=== PATIENT | female | born 1960 | race Two or more races ===

== ENCOUNTER → 2020-02-07 09:40 | Outpatient (BNVA) | payer OTHER, SELFPAY | PROVIDERS: PCP Internal Medicine; Visit Provider Hospitalist | DX: J45.51 Severe persistent asthma with (acute) exacerbation (principal) | CPT/HCPCS: 96372 ==

== ENCOUNTER → 2020-02-14 10:06 | Outpatient (BNVA) | payer OTHER, SELFPAY | PROVIDERS: PCP Internal Medicine; Referring Provider Internal Medicine; Visit Provider Hospitalist | DX: Z76.89 Persons encountering health services in other specified circumstances (principal) ==

== ENCOUNTER → 2020-03-08 13:59 | Outpatient (BNVA) | payer OTHER, SELFPAY | PROVIDERS: PCP Internal Medicine; Visit Provider Hospitalist | DX: J45.51 Severe persistent asthma with (acute) exacerbation (principal); G47.33 Obstructive sleep apnea (adult) (pediatric); Z99.89 Dependence on other enabling machines and devices ==

== ENCOUNTER → 2020-04-01 13:43 | Outpatient (BNVA) | payer OTHER, SELFPAY | PROVIDERS: PCP Internal Medicine; Visit Provider Hospitalist | DX: G47.33 Obstructive sleep apnea (adult) (pediatric) (principal); J45.909 Unspecified asthma, uncomplicated; Z99.89 Dependence on other enabling machines and devices | CPT/HCPCS: 90686 ==

== ENCOUNTER → 2020-04-29 13:33 | Outpatient (BNVA) | payer OTHER, SELFPAY | PROVIDERS: PCP Internal Medicine; Visit Provider Hospitalist | DX: Z76.89 Persons encountering health services in other specified circumstances (principal) ==

== ENCOUNTER → 2020-05-30 13:25 | Outpatient (BNVA) | payer OTHER, SELFPAY | PROVIDERS: PCP Internal Medicine; Visit Provider Hospitalist ==

== ENCOUNTER → 2020-06-10 13:45 | Outpatient (BNVA) | payer OTHER, SELFPAY | PROVIDERS: PCP Internal Medicine; Visit Provider Hospitalist ==

== ENCOUNTER → 2020-06-25 13:31 | Outpatient (BNVA) | payer OTHER, SELFPAY | PROVIDERS: PCP Internal Medicine; Visit Provider Hospitalist ==

== ENCOUNTER → 2020-07-15 13:19 | Outpatient (BNVA) | payer OTHER, SELFPAY | PROVIDERS: PCP Internal Medicine; Visit Provider Hospitalist | DX: J45.50 Severe persistent asthma, uncomplicated (principal) ==

== ENCOUNTER → 2020-08-12 14:16 | Outpatient (BNVA) | payer OTHER, SELFPAY | PROVIDERS: PCP Internal Medicine; Visit Provider Hospitalist | DX: J45.50 Severe persistent asthma, uncomplicated (principal); J45.51 Severe persistent asthma with (acute) exacerbation ==

== ENCOUNTER → 2020-09-23 14:04 | Outpatient (BNVA) | payer OTHER, SELFPAY | PROVIDERS: PCP Internal Medicine; Visit Provider Hospitalist | DX: J45.50 Severe persistent asthma, uncomplicated (principal); J45.51 Severe persistent asthma with (acute) exacerbation ==

== ENCOUNTER → 2020-11-08 14:16 | Outpatient (BNVA) | payer OTHER, SELFPAY | PROVIDERS: PCP Internal Medicine; Visit Provider Hospitalist | DX: J45.50 Severe persistent asthma, uncomplicated (principal); J45.51 Severe persistent asthma with (acute) exacerbation ==

== ENCOUNTER → 2020-12-05 13:43 | Outpatient (BNVA) | payer OTHER, SELFPAY | PROVIDERS: PCP Internal Medicine; Visit Provider Internal Medicine ==

== ENCOUNTER → 2020-12-10 13:49 | Outpatient (BNVA) | payer OTHER, SELFPAY | PROVIDERS: PCP Internal Medicine; Visit Provider Hospitalist | DX: J45.50 Severe persistent asthma, uncomplicated (principal); J45.51 Severe persistent asthma with (acute) exacerbation ==

== ENCOUNTER → 2021-01-09 13:51 | Outpatient (BNVA) | payer OTHER, SELFPAY | PROVIDERS: PCP Internal Medicine; Visit Provider Hospitalist | DX: J45.50 Severe persistent asthma, uncomplicated (principal); J45.51 Severe persistent asthma with (acute) exacerbation ==

== ENCOUNTER → 2021-01-30 14:28 | Outpatient (BNVA) | payer OTHER, SELFPAY | PROVIDERS: PCP Internal Medicine; Visit Provider Hospitalist | DX: J45.50 Severe persistent asthma, uncomplicated (principal); J45.51 Severe persistent asthma with (acute) exacerbation ==

== ENCOUNTER → 2021-03-20 15:07 | Outpatient (BNVA) | payer OTHER, SELFPAY | PROVIDERS: PCP Internal Medicine; Visit Provider Hospitalist | DX: J45.50 Severe persistent asthma, uncomplicated (principal); J45.51 Severe persistent asthma with (acute) exacerbation ==

== ENCOUNTER 2021-05-22 13:07 | Outpatient (REF) | payer OTHER, SELFPAY ==
--- NOTE | ~2021-05-22 | XR_ITS ---
EXAMINATION: XR CHEST CLINICAL INFORMATION: Asthma COMPARISON: None TECHNIQUE: 2 views of the chest were obtained. FINDINGS: Normal symmetric lung volumes. No parenchymal consolidation. No pleural effusion. No pneumothorax. Cardiomediastinal silhouette and pulmonary vascularity are within normal limits. Aorta is atherosclerotic. No acute osseous abnormalities. XR/XR chest 2V IMPRESSION: No acute findings.
[2021-05-22 14:47] LABS: Basophils Absolute Auto 0.1 X10*3/uL (0.0-0.2); Basophils Percent Auto 0.9 % (0-2); Eosinophils Absolute Auto 0.1 X10*3/uL (0.0-0.4); Eosinophils Percent Auto 1.8 % (0-4); Hematocrit 41.6 % (37.0-47.0); Hemoglobin 13.2 g/dl (12.0-16.0); Imm Gran Abs Auto 0.01 X10*3/uL (0.00-0.03); Imm Gran Pct Auto 0.1 % (0.0-0.4); Lymphocytes Absolute Auto 2.6 X10*3/uL (1.2-4.9); Lymphocytes Percent Auto 36.6 % (20-40); MANUAL DIFF FLAG SCAN; Mean Corpuscular HGB Conc 31.7 g/dl (31.0-35.0); Mean Corpuscular Hemoglobin 28.1 pg (27.0-33.0); Mean Corpuscular Volume 88.5 fL (80.0-98.0); Mean Platelet Volume 12.1 fL (9.4-12.3); Monocytes Absolute Auto 0.5 X10*3/uL (0.1-1.2); Monocytes Percent Auto 7.2 % (2-11); Neutrophils Absolute Auto 3.8 x10*3/uL (2.0-8.3); Neutrophils Percent Auto 53.4 % (45-73); PLT CLUMP 1; Red Cell Distribution Width 12.9 % (11.0-16.0); SCAN SMEAR FLAG 1
[2021-05-22 14:49] LABS: Platelet Count 138 X10*3/uL (160-400); White Blood Count 7.1 X10*3/uL (4.8-10.8)
[2021-05-22 15:03] LABS: SLIDE REVIEW VERIFIED
[2021-05-22 15:27] LABS: Erythrocyte Sedimentation Rate 11 MM/HR (0-20)
[2021-05-23 07:01] LABS: Immunoglobulin E 37 kU/L (<OR=114)
== END 2021-05-22 13:08 | disposition home or self-care (01) ==
LOC: HO.LAB 13:07
PROVIDERS: PCP Internal Medicine; Visit Provider Hospitalist
DX: J45.50 Severe persistent asthma, uncomplicated (principal); J45.51 Severe persistent asthma with (acute) exacerbation; J30.9 Allergic rhinitis, unspecified; G47.33 Obstructive sleep apnea (adult) (pediatric); Z99.89 Dependence on other enabling machines and devices
CPT/HCPCS: 36415; 71046; 82785; 85025; 85652

== ENCOUNTER → 2021-07-04 13:34 | Outpatient (BNVA) | payer OTHER, SELFPAY | PROVIDERS: PCP Internal Medicine; Visit Provider Hospitalist | DX: J45.50 Severe persistent asthma, uncomplicated (principal); J45.51 Severe persistent asthma with (acute) exacerbation; J30.9 Allergic rhinitis, unspecified; R91.8 Other nonspecific abnormal finding of lung field ==

== ENCOUNTER → 2021-08-11 14:05 | Outpatient (BNVA) | payer OTHER, SELFPAY | PROVIDERS: PCP Internal Medicine; Visit Provider Hospitalist | DX: J45.50 Severe persistent asthma, uncomplicated (principal); J45.51 Severe persistent asthma with (acute) exacerbation; J30.9 Allergic rhinitis, unspecified; R91.8 Other nonspecific abnormal finding of lung field ==

== ENCOUNTER 2021-10-16 14:39 | Outpatient (REF) | payer OTHER, SELFPAY ==
--- NOTE | ~2021-10-16 | XR_ITS ---
EXAMINATION: XR CHEST CLINICAL INFORMATION: Severe persistent asthma complicated COMPARISON: Chest radiograph from 05/22/2021 TECHNIQUE: 2 views of the chest were obtained. FINDINGS: No focal consolidation. No pneumothorax. Trachea is midline. Cardiomediastinal silhouette is not enlarged. Atherosclerotic calcifications along the aortic arch. No large pleural effusion. Osseous structures are intact. Soft tissues are unremarkable. XR/XR chest 2V IMPRESSION: No acute cardiopulmonary process.
== END 2021-10-16 14:40 | disposition home or self-care (01) ==
LOC: HO.XRAY 14:39
PROVIDERS: PCP Internal Medicine; Visit Provider Hospitalist
DX: J45.50 Severe persistent asthma, uncomplicated (principal)
CPT/HCPCS: 71046

== ENCOUNTER 2021-11-14 15:21 | Outpatient (REF) | payer OTHER, SELFPAY ==
[2021-11-14 16:04] LABS: COVID-19 Test Negative (Negative); IDNOW Serial# 16C4AD1C
== END 2021-11-14 15:22 | disposition home or self-care (01) ==
LOC: HO.LAB 15:21
PROVIDERS: Hospitalist; Visit Provider Internal Medicine
DX: Z20.822 Contact with and (suspected) exposure to COVID-19 (principal); J45.50 Severe persistent asthma, uncomplicated
CPT/HCPCS: 87635

== ENCOUNTER 2022-01-30 12:56 | Outpatient (REF) | payer OTHER, SELFPAY ==
--- NOTE | 2022-01-30 14:31 | PFT_ITS ---
FLOWS: FEV1 96% of predicted at 2.30 L. FVC 84% of predicted at 2.56 L. FEV1 to FVC ratio of 0.90. No bronchodilator response. LUNG VOLUMES: Total lung capacity 83% of predicted at 4.11 L. Residual volume 73% of predicted at 1.47 L. Slow vital capacity 90% of predicted at 2.64 L. Expiratory reserve volume 32% of predicted at 0.26 L. Diffusion capacity is normal. IMPRESSION: No obstructive or restrictive ventilatory defect. No bronchodilator response. Decreased expiratory reserve volume suggests extrathoracic restriction likely secondary to abdominal obesity. Dex Sewell MD AP/MODL / [id number]
== END 2022-01-30 12:57 | disposition home or self-care (01) ==
LOC: HO.RESP 12:56
PROVIDERS: PCP Internal Medicine; Visit Provider Hospitalist
DX: U07.1 COVID-19 (principal); R00.0 Tachycardia, unspecified
CPT/HCPCS: 94060; 94727; 94729

== ENCOUNTER → 2022-07-17 13:43 | Outpatient (BNVA) | payer OTHER, SELFPAY | PROVIDERS: PCP Internal Medicine; Visit Provider Hospitalist | DX: J45.51 Severe persistent asthma with (acute) exacerbation (principal); J30.9 Allergic rhinitis, unspecified; R91.8 Other nonspecific abnormal finding of lung field ==

== ENCOUNTER → 2022-10-13 11:13 | Outpatient (BNVA) | payer OTHER, SELFPAY | PROVIDERS: PCP Internal Medicine; Visit Provider Hospitalist ==

== ENCOUNTER 2023-04-02 15:35 | Outpatient (AMB) | payer OTHER, SELFPAY ==
--- NOTE | 2023-04-05 08:27 | A.OFFVIS_ITS ---
Intake Vital Signs 04/05/23 08:34 Height 5 ft 3 in Weight 210 lb 8.663 oz BMI 37.3 Intake Visit Reasons: Flu shot Allergies pneumococcal vaccine Allergy (Severe, Verified 04/05/23 08:33) Arm swollen Seasonal Allergies Allergy (Intermediate, Uncoded 04/05/23 08:33) Rash Medication List - Last Reconciled 04/05/23 by Vicki Mancia LPN albuterol sulfate 2.5 mg (3 mL) inhalation Q6H PRN 30 days albuterol sulfate 90 mcg/actuation (ProAir HFA) 2 puffs inhalation Q6H PRN 90 days amoxicillin-pot clavulanate 875-125 mg 1 tab PO BID 10 days azelastine 2 sprays intranasal BID benzonatate 200 mg PO BID PRN 30 days candesartan 16 mg PO BID cetirizine (Zyrtec) 10 mg PO DAILY 90 days cholecalciferol (vitamin D3) 50 mcg PO DAILY citalopram 0 mg PO clotrimazole 1% appl topical dicyclomine 10 mg PO QID PRN diphenhydramine HCl (Benadryl Allergy) 25 mg PO DAILY PRN 30 days dupilumab (Dupixent) 200 mg (1.14 mL) subcut Q2W 28 days escitalopram oxalate 10 mg PO DAILY ibuprofen 400 mg PO Q8H PRN inhalational spacing device (Aerochamber MV spacer) As directed ipratropium-albuterol 0.5 mg-3 mg(2.5 mg base)/3 mL 3 mL inhalation BID 30 days lorazepam 0.5 mg PO Q6H PRN montelukast 10 mg PO BEDTIME 90 days nebulizers As directed prednisone PO daily; Take 3 tabs x 3 days, then 2 tabs daily x 3 days, then 1 tab x 3 days to complete. 9 days roflumilast (Daliresp) 250 mcg PO DAILY 90 days rosuvastatin 10 mg PO DAILY simethicone 125 mg PO TID Trelegy Ellipta 200-62.5-25 mcg (xflkjrvtmct-kdephmqlf-qzobcsnj) 1 ea PO DAILY NS PFSH Medical History (Updated 07/17/22 @ 14:05 by Malick Dorsey MD) Rash Conversion disorder Hypercholesteremia Hypertension Chronic bronchitis Chronic allergic rhinitis Asthma Tachycardia MARIMAR on CPAP Asthma exacerbation attacks Family History Other Asthma Social History (Updated 01/09/21 @ 14:01 by DON Clark) Household Members: Spouse Household Members Other:: Thuan Patient Tobacco Use Status: Never used Tobacco Second Hand Smoke Exposure: No Physical Exam Vital Signs: BMI result Body Mass Index 37.3 Office Procedures Flu Questionnaire Does the patient have a severe egg allergy?: No Does the patient have severe life threatening allergies?: No Does the patient have a fever or illness today?: No Has the patient ever had Guillain-Alton Syndrome?: No Has the patient ever had any past reaction to a flu shot?: No Immunizations flu vacc [id number] 6mos up(PF) 60 mcg(15 mcgx4)/0.5 mL IM syringe Performing Provider: Malick Dorsey MD Performing Location: [facility] Administered by: Vicki Mancia LPN on 04/05/23 08:32 Dose Route Admin Location Dispensed Lot Number Expiration Date NDC Defect Repairer Glassware 0.5 mL IM Left Deltoid 0.5 mL [id number] 10/31/23 [id number] [place] VIS Given Date VIS Provided VIS Publication Date 04/05/23 Single Vaccine 20 Eligibility Eligibility Date Funding Source Not [facility] Eligible 04/05/23 Private Assessment & Plan Assessment & Plan (1) Asthma: Code(s): J45.909 - Unspecified asthma, uncomplicated Qualifiers: Asthma complication type: uncomplicated Asthma persistence: persistent Asthma severity: severe Qualified Code(s): J45.50 - Severe persistent asthma, uncomplicated Plan Flu Orders: Orders Influenza [id number] Immunization 04/02/23 J45.909 - Unspecified asthma, uncomplicated Coding Level of Care Code Established Pt Est Pt Level 1 (92923) Patient Type Established Diagnoses Severe persistent asthma without complication J45.50 Asthma complication type: uncomplicated Asthma persistence: persistent Asthma severity: severe Comment NURSE VISIT ONLY
[2023-04-05 08:34] VITALS: BMI 37.3
== END 2023-04-02 15:45 | disposition home or self-care (01) ==
LOC: HO.HPS 15:35
PROVIDERS: PCP Internal Medicine; Visit Provider Hospitalist
DX: J45.50 Severe persistent asthma, uncomplicated (principal); J45.909 Unspecified asthma, uncomplicated

== ENCOUNTER → 2023-04-02 15:35 | Outpatient (BNVA) | payer OTHER, SELFPAY | PROVIDERS: PCP Internal Medicine; Visit Provider Hospitalist | DX: J45.50 Severe persistent asthma, uncomplicated (principal); Z23 Encounter for immunization | CPT/HCPCS: 90471; 90686; 99211 ==

== ENCOUNTER 2023-04-16 11:07 | Outpatient (AMB) | payer OTHER, SELFPAY ==
--- NOTE | 2023-04-16 11:13 | MHC.OFFVIS ---
Intake Vital Signs 04/16/23 11:14 Height 5 ft 3 in Weight 215 lb BMI 38.1 BP 132/60 Blood Pressure Location Lt brachial Position Sitting Pulse 72 Pulse Source Pulse Oximeter Pulse Oximetry (%) 97 Oxygen Delivery Method Room Air Intake Visit Reasons: COPD follow-up Production Control Expediter Required: No Allergies pneumococcal vaccine Allergy (Severe, Verified 04/16/23 11:17) Arm swollen Seasonal Allergies Allergy (Intermediate, Uncoded 04/16/23 11:17) Rash HPI HPI Comments History of Present Illness Details The patient is a 62-year-old woman with a known history of lifelong asthma in addition to obstructive sleep apnea. Apparently she has had episodes of her asthma getting worse. However, back in the winter in the fall of 2017 her asthma got much worse. She required multiple courses of prednisone on a monthly basis. She was then evaluated by Pulmonary and she was placed on a respiratory inhaler that provide her with some improvement of her symptoms. However, then she started having issues with her blood pressure. She has been labile higher low. She was evaluated also in the ER because of the blood pressure. She did have a CT scan of the chest done back in 2019 the ruled out pulmonary emboli and per report did not have any parenchymal disease. 01/12/2022 the patient is here for a pulmonary follow-up visit. Although overall she continues to do fairly well. She has had some episodes which she develops some chest tightness in addition to palpitations. The episodes are self-limiting. Typically she just stress to rest and she does not have to use any bronchodilator therapy. during the episodes she has noticed that her heart rate increases and she also documented that her oxygen may drop to the mid 80s. Today her vital signs are stable. She has had a full cardiac workup although it appears that she may have some episodes tachyarrhythmias or SVT. It appears that her symptoms restarted after having COVID. 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 The patient also has been time to go back to exercise. However, with these episodes she has become fights in about potential pulmonary worsening. Therefore, will have her undergo pulmonary function studies and see about getting her to pulmonary rehabilitation which she can start exercising under some surveillance in order to improve her respiratory capacity indoors. In the meantime she continues use her CPAP. CPAP therapy continues to be affecting beneficial. She does try to use it for more than 4 hours. She was little reluctant after having COVID. but she is using it more regularly. 07/17/2022 the patient is here for a pulmonary follow-up visit. The patient is doing well. She is responding well to the current respiratory regimen. Recently has an asthma flare requiring Prednisone. Now back to her baseline. She is tolerating the Trelegy very well. She still has episodes of shortness of breath and chest tightness. Ltad-nj-bmyvqqga severity. She does need to use her rescue inhaler those times. She is still responding to the Dupixent well. Although, she has developed a rash. She will try benadryl pre injections. If the rash worsens, then we will have to find and alternative. She is using her CPAP. The CPAP therapy continues to be affecting beneficial. She does try to use it more than 4 hours a night. 10/13/2022 the patient is here for a pulmonary follow-up visit. The patient overall has been doing well from a respiratory status. The regimen has been working well for her. She has not been on any prednisone. The patient is tolerating her medicines. Unfortunately, she is developing a worsening rash. Initially she was getting pruritus when using the Dupixent and had been taking Benadryl before the injection which appeared to be working. Now that we getting more sending days on and she is noticing more skin blemish. Some of the areas appeared to be travertine installer in color and she is worried about vitiligo that may be induced by Dupixent. The area still not look like middle I go to me but they definitely look a little bit travertine installer in pigmentation in a may be something that is potentially progressive. Therefore we did discuss a holding her injection for now and starting her on a lower dose. She is agreeable to this. The regimen has been very effective for her because she had a lot of exacerbations and quality of life was very poor. So, the ADL stopping the medication may resulting worsening respiratory symptoms therefore rather try to decrease the dose 1st to see if this is effective for her to find the lowest most effective dose with the last risk of any adverse effects. If she still has issues then will have to stop it altogether consider other potential interventions. In the meantime the patient continues her CPAP. CPAP therapy continues to be affecting beneficial. She does use it for more than 4 hours a night. Sometimes she has not increased productive cough in the morning. I did advise her to start her nasal rinsing to minimize nasal secretions. 04/16/2023 the patient is here for a pulmonary follow-up visit. The patient continues to do well. She had her Dupixent decrease to 200 mg and she is tolerating it well. She has noticed a slight rash but very minimal. No evidence of any better like go which is reassuring. She does complaint of headaches and abdominal discomfort. She is working on trying to figure out if this is the medication adverse effect. The I did recommend that if she continues to have discomfort she can consider decreasing the Daliresp it to every other day of 3 times a week to see if this improves her symptoms. Her current medical regimen as provide her with good stabilization of her asthma and respiratory symptoms therefore I would be careful to change any of her regimen. As far as her sleep she is using CPAP. CPAP therapy continues to be affecting beneficial. She does try to use it every night for more than 4 hours a night. Will continue to monitor her closely. Patient has any worsening adverse effects from the medications she will call me otherwise will follow-up in 6 months.. [facility] Medical History (Updated 04/19/23 @ 21:54 by Malick Dorsey MD) Rash Conversion disorder Hypercholesteremia Hypertension Chronic bronchitis Chronic allergic rhinitis Asthma Tachycardia MARIMAR on CPAP Asthma exacerbation attacks Family History Other Asthma Social History (Updated 01/09/21 @ 14:01 by Melia Vu [facility]) Household Members: Spouse Household Members Other:: Thuan Patient Tobacco Use Status: Never used Tobacco Second Hand Smoke Exposure: No Review of Systems Const Denies daytime sleepiness, Denies difficulty sleeping, Reports headache(s), Denies night sweats and Reports weight gain ENT Denies change in voice, Reports headache(s), Denies lip swelling, Denies mouth pain, Reports nasal congestion, Reports nasal discharge and Denies tongue swelling Card Denies chest pain, Denies palpitations, Denies dyspnea, Reports dyspnea on exertion and Reports paroxysmal nocturnal dyspnea Resp Denies chest congestion, Reports cough, Denies dyspnea, Reports dyspnea on exertion and Reports wheezing GI Denies abdominal pain Musc Reports muscle weakness Skin/Breast Reports change in pigmentation and Reports rash Neuro Denies Neuro-related abnormal movements and Reports headache(s) Psych Denies anxiety Endo Denies palpitations Car/Lymph Denies easy bleeding and Denies lymphadenopathy Aller/Immun Denies lip swelling, Denies tongue swelling and Reports wheezing Physical Exam Vital Signs: Last Vital Signs Pulse 72 04/16/23 11:14 BP 132/60 04/16/23 11:14 Pulse Ox 97 04/16/23 11:14 Oxygen Delivery Method Room Air 04/16/23 11:14 BMI result Body Mass Index 38.1 Const General: alert Neck Neck: Yes normal visual inspection, Yes full ROM and Yes no lymphadenopathy Chest Chest palpation & inspection: normal inspection of the chest Resp Auscultation: clear to auscultation bilaterally and no wheezes Cardio Rate: regular rate Rhythm: regular rhythm Heart sounds: S1 normal heart sound present and S2 normal heart sound present GI Palpation (GI): Soft to palpation and nontender Auscultation: normal bowel sounds Skin General skin exam: other (pale hypo pigmented areas on the arms and face) Assessment & Plan Assessment & Plan (1) Asthma: Code(s): J45.909 - Unspecified asthma, uncomplicated Qualifiers: Asthma complication type: uncomplicated Asthma persistence: persistent Asthma severity: severe Qualified Code(s): J45.50 - Severe persistent asthma, uncomplicated (2) Chronic bronchitis: Code(s): J42 - Unspecified chronic bronchitis Qualifiers: Chronic bronchitis type: mixed simple and mucopurulent Qualified Code(s): J41.8 - Mixed simple and mucopurulent chronic bronchitis (3) Chronic allergic rhinitis: Code(s): J30.9 - Allergic rhinitis, unspecified (4) MARIMAR on CPAP: Code(s): G47.33 - Obstructive sleep apnea (adult) (pediatric); Z99.89 - Dependence on other enabling machines and devices (5) Rash: Comment: better Code(s): R21 - Rash and other nonspecific skin eruption Plan continue Dupixent 200mg SC Q2 weeks. Monitor for any worsening rash Will take Benadryl pre Dupixent continue Trelegy Xopenex as needed continue Daliresp 250 to daily, consider decreasing if worsening abdominal pain/headaches Continue Felicia, astelin nasal spray tessalon pearls as needed for cough continue CPAP therapy, nasal mask and add chin strap. F/U 3-4 months Coding Level of Care Code Est Pt Level 4 (09629) Diagnoses Severe persistent asthma without complication J45.50 Asthma complication type: uncomplicated Asthma persistence: persistent Asthma severity: severe Mixed simple and mucopurulent chronic bronchitis J41.8 Chronic bronchitis type: mixed simple and mucopurulent Chronic allergic rhinitis J30.9 MARIMAR on CPAP G47.33; Z99.89 Rash R21 Time Spent (min) 18
[2023-04-16 11:14] VITALS: BP 132/60; PULSE 72; O2SAT 97; BMI 38.1
== END 2023-04-16 11:30 | disposition home or self-care (01) ==
PROVIDERS: PCP Internal Medicine; Visit Provider Hospitalist
DX: J45.50 Severe persistent asthma, uncomplicated (principal); J41.8 Mixed simple and mucopurulent chronic bronchitis; J30.9 Allergic rhinitis, unspecified; G47.33 Obstructive sleep apnea (adult) (pediatric); Z99.89 Dependence on other enabling machines and devices; R21 Rash and other nonspecific skin eruption
CPT/HCPCS: 99214

== ENCOUNTER → 2023-04-16 11:07 | Outpatient (BNVA) | payer OTHER, SELFPAY | PROVIDERS: PCP Internal Medicine; Visit Provider Hospitalist ==

== ENCOUNTER 2023-10-11 11:21 | Outpatient (AMB) | payer OTHER, SELFPAY ==
[2023-10-11 11:26] VITALS: PULSE 81; O2SAT 96; BMI 37.9
--- NOTE | 2023-10-11 11:26 | MHC.OFFVIS ---
Vital Signs 10/11/23 11:26 Height 5 ft 3 in Weight 214 lb BMI 37.9 Pulse 81 Pulse Source Pulse Oximeter Pulse Oximetry (%) 96 Oxygen Delivery Method Room Air Intake Visit Reasons: COPD follow-up Administrative Assistant Coordinator Required: No Allergies pneumococcal vaccine Allergy (Severe, Verified 10/11/23 11:29) Arm swollen Seasonal Allergies Allergy (Intermediate, Uncoded 10/11/23 11:29) Rash HPI Comments Details: The patient is a 63-year-old woman with a known history of lifelong asthma in addition to obstructive sleep apnea. Apparently she has had episodes of her asthma getting worse. However, back in the winter in the fall of 2017 her asthma got much worse. She required multiple courses of prednisone on a monthly basis. She was then evaluated by Pulmonary and she was placed on a respiratory inhaler that provide her with some improvement of her symptoms. However, then she started having issues with her blood pressure. She has been labile higher low. She was evaluated also in the ER because of the blood pressure. She did have a CT scan of the chest done back in 2019 the ruled out pulmonary emboli and per report did not have any parenchymal disease. 01/12/2022 the patient is here for a pulmonary follow-up visit. Although overall she continues to do fairly well. She has had some episodes which she develops some chest tightness in addition to palpitations. The episodes are self-limiting. Typically she just stress to rest and she does not have to use any bronchodilator therapy. during the episodes she has noticed that her heart rate increases and she also documented that her oxygen may drop to the mid 80s. Today her vital signs are stable. She has had a full cardiac workup although it appears that she may have some episodes tachyarrhythmias or SVT. It appears that her symptoms restarted after having COVID. 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 The patient also has been time to go back to exercise. However, with these episodes she has become fights in about potential pulmonary worsening. Therefore, will have her undergo pulmonary function studies and see about getting her to pulmonary rehabilitation which she can start exercising under some surveillance in order to improve her respiratory capacity indoors. In the meantime she continues use her CPAP. CPAP therapy continues to be affecting beneficial. She does try to use it for more than 4 hours. She was little reluctant after having COVID. but she is using it more regularly. 07/17/2022 the patient is here for a pulmonary follow-up visit. The patient is doing well. She is responding well to the current respiratory regimen. Recently has an asthma flare requiring Prednisone. Now back to her baseline. She is tolerating the Trelegy very well. She still has episodes of shortness of breath and chest tightness. [id number] severity. She does need to use her rescue inhaler those times. She is still responding to the Dupixent well. Although, she has developed a rash. She will try benadryl pre injections. If the rash worsens, then we will have to find and alternative. She is using her CPAP. The CPAP therapy continues to be affecting beneficial. She does try to use it more than 4 hours a night. 10/13/2022 the patient is here for a pulmonary follow-up visit. The patient overall has been doing well from a respiratory status. The regimen has been working well for her. She has not been on any prednisone. The patient is tolerating her medicines. Unfortunately, she is developing a worsening rash. Initially she was getting pruritus when using the Dupixent and had been taking Benadryl before the injection which appeared to be working. Now that we getting more sending days on and she is noticing more skin blemish. Some of the areas appeared to be outboard motor mechanic in color and she is worried about vitiligo that may be induced by Dupixent. The area still not look like middle I go to me but they definitely look a little bit outboard motor mechanic in pigmentation in a may be something that is potentially progressive. Therefore we did discuss a holding her injection for now and starting her on a lower dose. She is agreeable to this. The regimen has been very effective for her because she had a lot of exacerbations and quality of life was very poor. So, the ADL stopping the medication may resulting worsening respiratory symptoms therefore rather try to decrease the dose 1st to see if this is effective for her to find the lowest most effective dose with the last risk of any adverse effects. If she still has issues then will have to stop it altogether consider other potential interventions. In the meantime the patient continues her CPAP. CPAP therapy continues to be affecting beneficial. She does use it for more than 4 hours a night. Sometimes she has not increased productive cough in the morning. I did advise her to start her nasal rinsing to minimize nasal secretions. 04/16/2023 the patient is here for a pulmonary follow-up visit. The patient continues to do well. She had her Dupixent decrease to 200 mg and she is tolerating it well. She has noticed a slight rash but very minimal. No evidence of any better like go which is reassuring. She does complaint of headaches and abdominal discomfort. She is working on trying to figure out if this is the medication adverse effect. The I did recommend that if she continues to have discomfort she can consider decreasing the Daliresp it to every other day of 3 times a week to see if this improves her symptoms. Her current medical regimen as provide her with good stabilization of her asthma and respiratory symptoms therefore I would be careful to change any of her regimen. As far as her sleep she is using CPAP. CPAP therapy continues to be affecting beneficial. She does try to use it every night for more than 4 hours a night. Will continue to monitor her closely. Patient has any worsening adverse effects from the medications she will call me otherwise will follow-up in 6 months.. 10/11/2023 the patient is here for a pulmonary follow-up visit. Overall she is doing okay. She is getting worked up for her GI discomfort. She is going to undergo a colonoscopy. The patient should be able to tolerate anesthesia without any difficulties. She also be in the hospital that she needs respiratory care they are present. That the patient seems to be working for her for her asthma. She has not had any asthma flare-ups while on the Dupixent which is reassuring. Although, she feels like she is still developing rashes from a. Back in August she had a rash in the face was not sure if it was Dupixent so she held it for some time. Then the rash happened again so then she suspect that it was not done Dupixent. Then she restarted Dupixent beginning of October. She has not had any adverse effects. Although she has noticed some skin changes in her arms. She rather have this can changes in her arms then have active asthma though. We did talk about although alternatives. For now though she will continue with the Dupixent. She will continue with respiratory therapy. She will continue to use her CPAP. CPAP therapy continues to be affecting beneficial she does use it every night for more than 4 hours. The patient returned 4 months or sooner if she develops any worsening issues with the Dupixent injection. She is going to retreat with Benadryl. She can take up to 50 mg of Benadryl prior to the Dupixent shot. [facility] Medical History (Updated 04/19/23 @ 21:54 by Malick Dorsey MD) Rash Conversion disorder Hypercholesteremia Hypertension Chronic bronchitis Chronic allergic rhinitis Asthma Tachycardia MARIMAR on CPAP Asthma exacerbation attacks Family History Other Asthma Social History (Updated 01/09/21 @ 14:01 by Melia Vu [facility]) Household Members: Spouse Household Members Other:: Thuan Patient Tobacco Use Status: Never used Tobacco Second Hand Smoke Exposure: No Review of Systems Const Denies daytime sleepiness, Denies difficulty sleeping, Reports headache(s), Denies night sweats and Reports weight gain ENT Denies change in voice, Reports headache(s), Denies lip swelling, Denies mouth pain, Reports nasal congestion, Reports nasal discharge and Denies tongue swelling Card Denies chest pain, Denies palpitations, Denies dyspnea, Reports dyspnea on exertion and Reports paroxysmal nocturnal dyspnea Resp Denies chest congestion, Reports cough, Denies dyspnea, Reports dyspnea on exertion and Reports wheezing GI Reports abdominal pain Musc Reports muscle weakness Skin/Breast Reports change in pigmentation and Reports rash Neuro Denies Neuro-related abnormal movements and Reports headache(s) Psych Denies anxiety Endo Denies palpitations Car/Lymph Denies easy bleeding and Denies lymphadenopathy Aller/Immun Denies lip swelling, Denies tongue swelling and Reports wheezing Physical Exam Vital Signs: Last Vital Signs Pulse 81 10/11/23 11:26 Pulse Ox 96 10/11/23 11:26 Oxygen Delivery Method Room Air 10/11/23 11:26 BMI result Body Mass Index 37.9 Const General: alert Neck Neck: Yes normal visual inspection, Yes full ROM and Yes no lymphadenopathy Chest Chest palpation & inspection: normal inspection of the chest Resp Auscultation: clear to auscultation bilaterally and no wheezes Cardio Rate: regular rate Rhythm: regular rhythm Heart sounds: S1 normal heart sound present and S2 normal heart sound present GI Palpation (GI): Soft to palpation and nontender Auscultation: normal bowel sounds Skin General skin exam: other (pale hypo pigmented areas on the arms and face) Assessment & Plan Assessment & Plan (1) Asthma: Code(s): J45.909 - Unspecified asthma, uncomplicated Category: Medical Qualifiers: Asthma complication type: uncomplicated Asthma persistence: persistent Asthma severity: severe Qualified Code(s): J45.50 - Severe persistent asthma, uncomplicated (2) Chronic bronchitis: Code(s): J42 - Unspecified chronic bronchitis Category: Medical Qualifiers: Chronic bronchitis type: mixed simple and mucopurulent Qualified Code(s): J41.8 - Mixed simple and mucopurulent chronic bronchitis (3) Chronic allergic rhinitis: Code(s): J30.9 - Allergic rhinitis, unspecified Category: Medical (4) MARIMAR on CPAP: Code(s): G47.33 - Obstructive sleep apnea (adult) (pediatric); Z99.89 - Dependence on other enabling machines and devices Category: Medical (5) Rash: Comment: better Code(s): R21 - Rash and other nonspecific skin eruption Category: Medical Plan continue Dupixent 200mg SC Q2 weeks. Monitor for any worsening rash, will make every 3 weeks to assess rash for now Will take Benadry 50mg, pre Dupixent continue Trelegy Xopenex as needed continue Daliresp 250 to daily Continue zyrtec, astelin nasal spray tessalon pearls as needed for cough continue CPAP therapy, nasal mask and add chin strap. F/U 4-6 months Medications: New diphenhydramine HCl (Benadryl Allergy) 25 mg PO BEDTIME PRN 20 tabs 11RF allergic reaction 30 days Coding Level of Care Code Est Pt Level 4 (86028) Diagnoses Severe persistent asthma without complication J45.50 Asthma complication type: uncomplicated Asthma persistence: persistent Asthma severity: severe Mixed simple and mucopurulent chronic bronchitis J41.8 Chronic bronchitis type: mixed simple and mucopurulent Chronic allergic rhinitis J30.9 MARIMAR on CPAP G47.33; Z99.89 Rash R21 Time Spent (min) 17
== END 2023-10-11 11:53 | disposition home or self-care (01) ==
PROVIDERS: PCP Internal Medicine; Visit Provider Hospitalist
DX: J45.50 Severe persistent asthma, uncomplicated (principal); J41.8 Mixed simple and mucopurulent chronic bronchitis; J30.9 Allergic rhinitis, unspecified; G47.33 Obstructive sleep apnea (adult) (pediatric); Z99.89 Dependence on other enabling machines and devices; R21 Rash and other nonspecific skin eruption
CPT/HCPCS: 99214

== ENCOUNTER → 2023-10-11 11:21 | Outpatient (BNVA) | payer OTHER, SELFPAY | PROVIDERS: PCP Internal Medicine; Visit Provider Hospitalist ==

== ENCOUNTER 2023-11-30 10:58 | Outpatient (AMB) | payer OTHER, SELFPAY ==
--- NOTE | 2023-11-30 11:10 | MHC.OFFVIS ---
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 Apparently she has had episodes of her asthma getting worse. However, back in the winter in the fall of 2017 her asthma got much worse. She required multiple courses of prednisone on a monthly basis. She was then evaluated by Pulmonary and she was placed on a respiratory inhaler that provide her with some improvement of her symptoms. However, then she started having issues with her blood pressure. She has been labile higher low. She was evaluated also in the ER because of the blood pressure. She did have a CT scan of the chest done back in 2019 the ruled out pulmonary emboli and per report did not have any parenchymal disease. 01/12/2022 the patient is here for a pulmonary follow-up visit. Although overall she continues to do fairly well. She has had some episodes which she develops some chest tightness in addition to palpitations. The episodes are self-limiting. Typically she just stress to rest and she does not have to use any bronchodilator therapy. during the episodes she has noticed that her heart rate increases and she also documented that her oxygen may drop to the mid 80s. Today her vital signs are stable. She has had a full cardiac workup although it appears that she may have some episodes tachyarrhythmias or SVT. It appears that her symptoms restarted after having COVID. 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 The patient also has been time to go back to exercise. However, with these episodes she has become fights in about potential pulmonary worsening. Therefore, will have her undergo pulmonary function studies and see about getting her to pulmonary rehabilitation which she can start exercising under some surveillance in order to improve her respiratory capacity indoors. In the meantime she continues use her CPAP. CPAP therapy continues to be affecting beneficial. She does try to use it for more than 4 hours. She was little reluctant after having COVID. but she is using it more regularly. 07/17/2022 the patient is here for a pulmonary follow-up visit. The patient is doing well. She is responding well to the current respiratory regimen. Recently has an asthma flare requiring Prednisone. Now back to her baseline. She is tolerating the Trelegy very well. She still has episodes of shortness of breath and chest tightness. [id number] severity. She does need to use her rescue inhaler those times. She is still responding to the Dupixent well. Although, she has developed a rash. She will try benadryl pre injections. If the rash worsens, then we will have to find and alternative. She is using her CPAP. The CPAP therapy continues to be affecting beneficial. She does try to use it more than 4 hours a night. 10/13/2022 the patient is here for a pulmonary follow-up visit. The patient overall has been doing well from a respiratory status. The regimen has been working well for her. She has not been on any prednisone. The patient is tolerating her medicines. Unfortunately, she is developing a worsening rash. Initially she was getting pruritus when using the Dupixent and had been taking Benadryl before the injection which appeared to be working. Now that we getting more sending days on and she is noticing more skin blemish. Some of the areas appeared to be continuous pillowcase cutter in color and she is worried about vitiligo that may be induced by Dupixent. The area still not look like middle I go to me but they definitely look a little bit continuous pillowcase cutter in pigmentation in a may be something that is potentially progressive. Therefore we did discuss a holding her injection for now and starting her on a lower dose. She is agreeable to this. The regimen has been very effective for her because she had a lot of exacerbations and quality of life was very poor. So, the ADL stopping the medication may resulting worsening respiratory symptoms therefore rather try to decrease the dose 1st to see if this is effective for her to find the lowest most effective dose with the last risk of any adverse effects. If she still has issues then will have to stop it altogether consider other potential interventions. In the meantime the patient continues her CPAP. CPAP therapy continues to be affecting beneficial. She does use it for more than 4 hours a night. Sometimes she has not increased productive cough in the morning. I did advise her to start her nasal rinsing to minimize nasal secretions. 04/16/2023 the patient is here for a pulmonary follow-up visit. The patient continues to do well. She had her Dupixent decrease to 200 mg and she is tolerating it well. She has noticed a slight rash but very minimal. No evidence of any better like go which is reassuring. She does complaint of headaches and abdominal discomfort. She is working on trying to figure out if this is the medication adverse effect. The I did recommend that if she continues to have discomfort she can consider decreasing the Daliresp it to every other day of 3 times a week to see if this improves her symptoms. Her current medical regimen as provide her with good stabilization of her asthma and respiratory symptoms therefore I would be careful to change any of her regimen. As far as her sleep she is using CPAP. CPAP therapy continues to be affecting beneficial. She does try to use it every night for more than 4 hours a night. Will continue to monitor her closely. Patient has any worsening adverse effects from the medications she will call me otherwise will follow-up in 6 months.. 10/11/2023 the patient is here for a pulmonary follow-up visit. Overall she is doing okay. She is getting worked up for her GI discomfort. She is going to undergo a colonoscopy. The patient should be able to tolerate anesthesia without any difficulties. She also be in the hospital that she needs respiratory care they are present. That the patient seems to be working for her for her asthma. She has not had any asthma flare-ups while on the Dupixent which is reassuring. Although, she feels like she is still developing rashes from a. Back in August she had a rash in the face was not sure if it was Dupixent so she held it for some time. Then the rash happened again so then she suspect that it was not done Dupixent. Then she restarted Dupixent beginning of October. She has not had any adverse effects. Although she has noticed some skin changes in her arms. She rather have this can changes in her arms then have active asthma though. We did talk about although alternatives. For now though she will continue with the Dupixent. She will continue with respiratory therapy. She will continue to use her CPAP. CPAP therapy continues to be affecting beneficial she does use it every night for more than 4 hours. The patient returned 4 months or sooner if she develops any worsening issues with the Dupixent injection. She is going to retreat with Benadryl. She can take up to 50 mg of Benadryl prior to the Dupixent shot. 10/31/2023 the patient is here for a sick visit. Apparently she had a respiratory virus about 3 weeks ago and after that she has not been the same. She started developing some congestion. She did call the office and did we did prescribe her Augmentin and also prednisone. She is continue her respiratory therapy. Although she still does not feel well. She does complains of some epigastric discomfort. The symptoms of soreness in the epigastric area mid to lower area are consistent. Sometimes they worsened but for the most part they are always there. The patient does complain of some heartburn as well. Will go ahead and stop the Augmentin altogether since she is almost taking 10 days and she also take the prednisone. It may indeed be a component of esophagitis based on her medications. She is continued on the Dupixent. We have switched her over to every 3 weeks because of the rash issue but now that the rash is better and her symptoms are worse will go ahead and change her back to the every 2 weeks. She will get an x-ray today to make sure that everything is okay from the chest area and also an EKG. She is going to be started on a PPI she is going to monitor her epigastric discomfort. If the patient continues to have discomfort she should call and cancel her colonoscopy. Otherwise if the patient feels better she should move forward with. [facility] Medical History (Updated 11/30/23 @ 22:03 by Malick Dorsey MD) Pre-op chest exam Chest pain Rash Conversion disorder Hypercholesteremia Hypertension Chronic bronchitis Chronic allergic rhinitis Asthma Tachycardia MARIMAR on CPAP Asthma exacerbation attacks Family History Other Asthma Social History (Updated 01/09/21 @ 14:01 by DON Clark) Household Members: Spouse Household Members Other:: Thuan Patient Tobacco Use Status: Never used Tobacco Second Hand Smoke Exposure: No Review of Systems Const Denies daytime sleepiness, Denies difficulty sleeping, Reports headache(s), Denies night sweats and Reports weight gain ENT Denies change in voice, Reports headache(s), Denies lip swelling, Denies mouth pain, Reports nasal congestion, Reports nasal discharge and Denies tongue swelling Card Denies chest pain, Denies palpitations, Denies dyspnea, Reports dyspnea on exertion and Reports paroxysmal nocturnal dyspnea Resp Denies chest congestion, Reports cough, Denies dyspnea, Reports dyspnea on exertion and Reports wheezing GI Reports abdominal pain Musc Reports muscle weakness Skin/Breast Reports change in pigmentation and Denies rash Neuro Denies Neuro-related abnormal movements and Reports headache(s) Psych Denies anxiety Endo Denies palpitations Car/Lymph Denies easy bleeding and Denies lymphadenopathy Aller/Immun Denies lip swelling, Denies tongue swelling and Reports wheezing Physical Exam Vital Signs: Last Vital Signs Pulse 80 11/30/23 11:11 BP 128/70 11/30/23 11:11 Pulse Ox 98 11/30/23 11:11 Oxygen Delivery Method Room Air 11/30/23 11:11 BMI result Body Mass Index 38.1 Const General: alert Neck Neck: Yes normal visual inspection, Yes full ROM and Yes no lymphadenopathy Chest Chest palpation & inspection: normal inspection of the chest Resp Auscultation: clear to auscultation bilaterally and no wheezes Cardio Rate: regular rate Rhythm: regular rhythm Heart sounds: S1 normal heart sound present and S2 normal heart sound present GI Palpation (GI): Soft to palpation and nontender Auscultation: normal bowel sounds Skin General skin exam: other (pale hypo pigmented areas on the arms and face) Assessment & Plan Assessment & Plan (1) Asthma: Code(s): J45.909 - Unspecified asthma, uncomplicated Category: Medical Qualifiers: Asthma complication type: uncomplicated Asthma persistence: persistent Asthma severity: severe Qualified Code(s): J45.50 - Severe persistent asthma, uncomplicated (2) Chronic bronchitis: Code(s): J42 - Unspecified chronic bronchitis Category: Medical Qualifiers: Chronic bronchitis type: mixed simple and mucopurulent Qualified Code(s): J41.8 - Mixed simple and mucopurulent chronic bronchitis (3) Chronic allergic rhinitis: Code(s): J30.9 - Allergic rhinitis, unspecified Category: Medical (4) MARIMAR on CPAP: Code(s): G47.33 - Obstructive sleep apnea (adult) (pediatric); Z99.89 - Dependence on other enabling machines and devices Category: Medical (5) Rash: Comment: better Code(s): R21 - Rash and other nonspecific skin eruption Category: Medical (6) Chest pain: Code(s): R07.9 - Chest pain, unspecified Category: Medical Qualifiers: Chest pain type: unspecified Qualified Code(s): R07.9 - Chest pain, unspecified (7) Pre-op chest exam: Code(s): Z01.811 - Encounter for preprocedural respiratory examination Category: Medical Plan completed abx and prednisone start PPI CXR and EKG If her chest discort subsides, then she may proceed with her colonoscopy. However, if she continues with chest discomfort, she will need to postpone any elective procedures. She will take the PPI and let us know by early next week continue Dupixent 200mg SC Q2 weeks. Return to 2 weeks Will take Benadry 50mg, pre Dupixent continue Trelegy Xopenex as needed continue Daliresp 250 to daily Continue zyrtec, astelin nasal spray tessalon pearls as needed for cough continue CPAP therapy, nasal mask and add chin strap. F/U 4-6 months Orders: Orders XR chest 2V Today R07.9 - Chest pain, unspecified ECG 12 lead EKG Today J44.9 - Chronic obstructive pulmonary disease, unspecified, R07.9 - Chest pain, unspecified Medications: New omeprazole 40 mg PO BID 60 caps 0RF 30 days Coding Level of Care Code Est Pt Level 4 (22877) Complex EM visit Add On G2211 Diagnoses Severe persistent asthma without complication J45.50 Asthma complication type: uncomplicated Asthma persistence: persistent Asthma severity: severe Mixed simple and mucopurulent chronic bronchitis J41.8 Chronic bronchitis type: mixed simple and mucopurulent Chronic allergic rhinitis J30.9 MARIMAR on CPAP G47.33; Z99.89 Rash R21 Chest pain, unspecified type R07.9 Chest pain type: unspecified Pre-op chest exam Z01.811 Time Spent (min) 20
[2023-11-30 11:11] VITALS: BP 128/70; PULSE 80; O2SAT 98; BMI 38.1
== END 2023-11-30 11:47 | disposition home or self-care (01) ==
PROVIDERS: PCP Internal Medicine; Visit Provider Hospitalist
DX: J45.50 Severe persistent asthma, uncomplicated (principal); J41.8 Mixed simple and mucopurulent chronic bronchitis; J30.9 Allergic rhinitis, unspecified; G47.33 Obstructive sleep apnea (adult) (pediatric); Z99.89 Dependence on other enabling machines and devices; R21 Rash and other nonspecific skin eruption; R07.9 Chest pain, unspecified; Z01.811 Encounter for preprocedural respiratory examination
CPT/HCPCS: 99214; G2211

== ENCOUNTER → 2023-11-30 10:58 | Outpatient (REF) | payer OTHER, SELFPAY ==
--- NOTE | ~2023-11-30 | XR_ITS ---
EXAMINATION: XR CHEST CLINICAL INFORMATION: Chest pain. COMPARISON: October 16, 2021. TECHNIQUE: 2 views of the chest were obtained. FINDINGS: There is no gross pneumothorax. Heart size is normal. Dextroscoliosis of the thoracic spine. No pleural effusion. No focal consolidation. XR/XR chest 2V IMPRESSION: No evidence of pneumonia.
--- NOTE | 2023-11-30 12:06 | ECG_ITS ---
Test Reason : copd Blood Pressure : / mmHG Vent. Rate : 076 BPM Atrial Rate : 076 BPM P-R Int : 160 ms QRS Dur : 082 ms QT Int : 398 ms P-R-T Axes : 065 051 057 degrees QTc Int : 447 ms Normal sinus rhythm Low voltage QRS Borderline ECG No previous ECGs available Referred By: Malick Dorsey Electronically Signed By:Rafat Jeffrey
== END ==
LOC: HO.CARD 10:58
PROVIDERS: PCP Internal Medicine; Visit Provider Hospitalist
DX: R07.9 Chest pain, unspecified (principal); J44.9 Chronic obstructive pulmonary disease, unspecified
CPT/HCPCS: 71046; 93005

== ENCOUNTER → 2023-11-30 12:06 | Outpatient (BNV) | payer OTHER, SELFPAY | PROVIDERS: PCP Internal Medicine; Visit Provider Internal Medicine Cardiovascular Disease | DX: R07.9 Chest pain, unspecified (principal); J44.9 Chronic obstructive pulmonary disease, unspecified | CPT/HCPCS: 93010 ==

== ENCOUNTER 2024-04-04 09:55 | Outpatient (AMB) | payer OTHER, SELFPAY ==
--- NOTE | 2024-04-04 09:57 | A.OFFVIS_ITS ---
Vital Signs 04/04/24 09:59 Height 5 ft 3 in Weight 218 lb 4.122 oz BMI 38.7 BP 134/62 Blood Pressure Location Lt brachial Position Sitting Pulse 64 Pulse Source Pulse Oximeter Pulse Oximetry (%) 97 Oxygen Delivery Method Room Air Intake Visit Reasons: asthma Spring Inspector Required: No Railroad Passenger Agent: Railroad Passenger Agent offered & declined Accompanied by: Self / Same As Patient Allergies pneumococcal vaccine Allergy (Severe, Verified 04/04/24 10:03) Arm swollen Seasonal Allergies Allergy (Intermediate, Uncoded 04/04/24 10:03) Rash Medication List - Last Reconciled 04/04/24 by Maria Ines Palacios LPN albuterol sulfate 2.5 mg (3 mL) inhalation Q6H PRN 30 days albuterol sulfate 90 mcg/actuation (ProAir HFA) 2 puffs inhalation Q6H PRN 90 days candesartan 16 mg PO BID cetirizine (Zyrtec) 10 mg PO DAILY 90 days cholecalciferol (vitamin D3) 50 mcg PO DAILY citalopram 5 mg PO clotrimazole 1% appl topical dicyclomine 10 mg PO QID PRN diphenhydramine HCl (Benadryl Allergy) 25 mg PO BEDTIME PRN 30 days dupilumab (Dupixent) 200 mg (1.14 mL) subcut Q2W escitalopram oxalate 10 mg PO DAILY inhalational spacing device (Aerochamber MV spacer) As directed ipratropium-albuterol 0.5 mg-3 mg(2.5 mg base)/3 mL 3 mL inhalation BID 30 days lorazepam 0.5 mg PO Q6H PRN montelukast 10 mg PO BEDTIME 90 days nebulizers As directed omeprazole 40 mg PO BID 30 days roflumilast (Daliresp) 250 mcg PO DAILY 90 days rosuvastatin 10 mg PO DAILY Trelegy Ellipta 200-62.5-25 mcg (cajahdiqcbu-fdqydzifc-gjunzbwp) 1 ea PO DAILY NS HPI Comments Details: The patient is a 63-year-old woman with a known history of lifelong asthma in addition to obstructive sleep apnea. Apparently she has had episodes of her asthma getting worse. However, back in the winter in the fall of 2017 her asthma got much worse. She required multiple courses of prednisone on a monthly basis. She was then evaluated by Pulmonary and she was placed on a respiratory inhaler that provide her with some improvement of her symptoms. However, then she started having issues with her blood pressure. She has been labile higher low. She was evaluated also in the ER because of the blood pressure. She did have a CT scan of the chest done back in 2019 the ruled out pulmonary emboli and per report did not have any parenchymal disease. 01/12/2022 the patient is here for a pulmonary follow-up visit. Although overall she continues to do fairly well. She has had some episodes which she develops some chest tightness in addition to palpitations. The episodes are self-limiting. Typically she just stress to rest and she does not have to use any bronchodilator therapy. during the episodes she has noticed that her heart rate increases and she also documented that her oxygen may drop to the mid 80s. Today her vital signs are stable. She has had a full cardiac workup although it appears that she may have some episodes tachyarrhythmias or SVT. It appears that her symptoms restarted after having COVID. 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 The patient also has been time to go back to exercise. However, with these episodes she has become fights in about potential pulmonary worsening. Therefore, will have her undergo pulmonary function studies and see about getting her to pulmonary rehabilitation which she can start exercising under some surveillance in order to improve her respiratory capacity indoors. In the meantime she continues use her CPAP. CPAP therapy continues to be affecting beneficial. She does try to use it for more than 4 hours. She was little reluctant after having COVID. but she is using it more regularly. 07/17/2022 the patient is here for a pulmonary follow-up visit. The patient is doing well. She is responding well to the current respiratory regimen. Recently has an asthma flare requiring Prednisone. Now back to her baseline. She is tolerating the Trelegy very well. She still has episodes of shortness of breath and chest tightness. Isuq-fx-ciwxengg severity. She does need to use her rescue inhaler those times. She is still responding to the Dupixent well. Although, she has developed a rash. She will try benadryl pre injections. If the rash worsens, then we will have to find and alternative. She is using her CPAP. The CPAP therapy continues to be affecting beneficial. She does try to use it more than 4 hours a night. 10/13/2022 the patient is here for a pulmonary follow-up visit. The patient overall has been doing well from a respiratory status. The regimen has been working well for her. She has not been on any prednisone. The patient is tolerating her medicines. Unfortunately, she is developing a worsening rash. Initially she was getting pruritus when using the Dupixent and had been taking Benadryl before the injection which appeared to be working. Now that we getting more sending days on and she is noticing more skin blemish. Some of the areas appeared to be nutrition instructor in color and she is worried about vitiligo that may be induced by Dupixent. The area still not look like middle I go to me but they definitely look a little bit nutrition instructor in pigmentation in a may be something that is potentially progressive. Therefore we did discuss a holding her injection for now and starting her on a lower dose. She is agreeable to this. The regimen has been very effective for her because she had a lot of exacerbations and quality of life was very poor. So, the ADL stopping the medication may resulting worsening respiratory symptoms therefore rather try to decrease the dose 1st to see if this is effective for her to find the lowest most effective dose with the last risk of any adverse effects. If she still has issues then will have to stop it altogether consider other potential interventions. In the meantime the patient continues her CPAP. CPAP therapy continues to be affecting beneficial. She does use it for more than 4 hours a night. Sometimes she has not increased productive cough in the morning. I did advise her to start her nasal rinsing to minimize nasal secretions. 04/16/2023 the patient is here for a pulmonary follow-up visit. The aurelio ent continues to do well. She had her Dupixent decrease to 200 mg and she is tolerating it well. She has noticed a slight rash but very minimal. No evidence of any better like go which is reassuring. She does complaint of headaches and abdominal discomfort. She is working on trying to figure out if this is the medication adverse effect. The I did recommend that if she continues to have discomfort she can consider decreasing the Daliresp it to every other day of 3 times a week to see if this improves her symptoms. Her current medical regimen as provide her with good stabilization of her asthma and respiratory symptoms therefore I would be careful to change any of her regimen. As far as her sleep she is using CPAP. CPAP therapy continues to be affecting beneficial. She does try to use it every night for more than 4 hours a night. Will continue to monitor her closely. Patient has any worsening adverse effects from the medications she will call me otherwise will follow-up in 6 months.. 10/11/2023 the patient is here for a pulmonary follow-up visit. Overall she is doing okay. She is getting worked up for her GI discomfort. She is going to undergo a colonoscopy. The patient should be able to tolerate anesthesia without any difficulties. She also be in the hospital that she needs respiratory care they are present. That the patient seems to be working for her for her asthma. She has not had any asthma flare-ups while on the Dupixent which is reassuring. Although, she feels like she is still developing rashes from a. Back in August she had a rash in the face was not sure if it was Dupixent so she held it for some time. Then the rash happened again so then she suspect that it was not done Dupixent. Then she restarted Dupixent beginning of October. She has not had any adverse effects. Although she has noticed some skin changes in her arms. She rather have this can changes in her arms then have active asthma though. We did talk about although alternatives. For now though she will continue with the Dupixent. She will continue with respiratory therapy. She will continue to use her CPAP. CPAP therapy continues to be affecting beneficial she does use it every night for more than 4 hours. The patient returned 4 months or sooner if she develops any worsening issues with the Dupixent injection. She is going to retreat with Benadryl. She can take up to 50 mg of Benadryl prior to the Dupixent shot. 10/31/2023 the patient is here for a sick visit. Apparently she had a respiratory virus about 3 weeks ago and after that she has not been the same. She started developing some congestion. She did call the office and did we did prescribe her Augmentin and also prednisone. She is continue her respiratory therapy. Although she still does not feel well. She does complains of some epigastric discomfort. The symptoms of soreness in the epigastric area mid to lower area are consistent. Sometimes they worsened but for the most part they are always there. The patient does complain of some heartburn as well. Will go ahead and stop the Augmentin altogether since she is almost taking 10 days and she also take the prednisone. It may indeed be a component of esophagitis based on her medications. She is continued on the Dupixent. We have switched her over to every 3 weeks because of the rash issue but now that the rash is better and her symptoms are worse will go ahead and change her back to the every 2 weeks. She will get an x-ray today to make sure that everything is okay from the chest area and also an EKG. She is going to be started on a PPI she is going to monitor her epigastric discomfort. If the patient continues to have discomfort she should call and cancel her colonoscopy. Otherwise if the patient feels better she should move forward with. 04/04/2024 the patient is here for a pulmonary follow-up visit. She has been sick now for about 5 days. Her grandson got her sick. Has had a sore throat in addition to headaches myalgias and also started with a cough productive in nature with yellow sputum. She is also complaining of chest tightness and wheezing. She has been using her respiratory therapy more often with partial response. No recent imaging studies to review. Right now will treat her for bronchitis. She also has significant wheezing on exam and rhonchi consistent with an asthma exacerbation due to the illness. She will require prednisone. I will send taper but I did explain to her that she can taper little quickly that will be better for her. Will plan to follow-up in 4-6 m [facility]. If any issues arise she will call for an earlier assessment. [facility] Medical History (Updated 04/04/24 @ 21:34 by Malick Dorsey MD) Pre-op chest exam Chest pain Rash Conversion disorder Hypercholesteremia Hypertension Chronic bronchitis Chronic allergic rhinitis Asthma Tachycardia MARIMAR on CPAP Asthma exacerbation attacks Family History Other Asthma Social History Household Members: Spouse Household Members Other:: Thuan Patient Tobacco Use Status: Never used Tobacco Second Hand Smoke Exposure: No Review of Systems Const Denies daytime sleepiness, Reports difficulty sleeping, Reports headache(s), Reports malaise, Denies night sweats and Reports weight gain ENT Denies change in voice, Reports headache(s), Denies lip swelling, Denies mouth pain, Reports nasal congestion, Reports nasal discharge and Denies tongue swelling Card Denies chest pain, Denies palpitations, Denies dyspnea, Reports dyspnea on exertion and Reports paroxysmal nocturnal dyspnea Resp Reports chest congestion, Reports cough, Denies dyspnea, Reports dyspnea on exertion and Reports wheezing GI Reports abdominal pain Musc Reports muscle weakness Skin/Breast Reports change in pigmentation and Denies rash Neuro Denies Neuro-related abnormal movements and Reports headache(s) Psych Denies anxiety Endo Denies palpitations Car/Lymph Denies easy bleeding and Denies lymphadenopathy Aller/Immun Denies lip swelling, Denies tongue swelling and Reports wheezing Physical Exam Vital Signs: Last Vital Signs Pulse 64 04/04/24 09:59 BP 134/62 04/04/24 09:59 Pulse Ox 97 04/04/24 09:59 Oxygen Delivery Method Room Air 04/04/24 09:59 BMI result Body Mass Index 38.7 Const General: alert Neck Neck: Yes normal visual inspection, Yes full ROM and Yes no lymphadenopathy Chest Chest palpation & inspection: normal inspection of the chest Resp Auscultation: clear to auscultation bilaterally and wheezes Cardio Rate: regular rate Rhythm: regular rhythm Heart sounds: S1 normal heart sound present and S2 normal heart sound present GI Palpation (GI): Soft to palpation and nontender Auscultation: normal bowel sounds Skin General skin exam: other (pale hypo pigmented areas on the arms and face) Assessment & Plan Assessment & Plan (1) Asthma: Code(s): J45.909 - Unspecified asthma, uncomplicated Category: Medical Qualifiers: Asthma complication type: with acute exacerbation Asthma persistence: persistent Asthma severity: severe Qualified Code(s): J45.51 - Severe persistent asthma with (acute) exacerbation (2) Bronchitis: Code(s): J40 - Bronchitis, not specified as acute or chronic Category: Medical (3) Chronic bronchitis: Code(s): J42 - Unspecified chronic bronchitis Category: Medical Qualifiers: Chronic bronchitis type: mixed simple and mucopurulent Qualified Code(s): J41.8 - Mixed simple and mucopurulent chronic bronchitis (4) Chronic allergic rhinitis: Code(s): J30.9 - Allergic rhinitis, unspecified Category: Medical (5) MARIMAR on CPAP: Code(s): G47.33 - Obstructive sleep apnea (adult) (pediatric); Z99.89 - Dependence on other enabling machines and devices Category: Medical Plan completed abx and prednisone continue Dupixent 200mg SC Q2 weeks Benadry 50mg, pre Dupixent continue Trelegy Xopenex as needed continue Daliresp 250 to daily Continue zyrtec, astelin nasal spray tessalon pearls as needed for cough continue CPAP therapy, nasal mask and add chin strap. F/U 4-6 months Medications: New dextromethorphan-guaifenesin 60-1,200 mg ER (Mucinex DM) 1 tab PO Q12H 28 tabs 0 RF 14 days amoxicillin-pot clavulanate 875-125 mg 1 tab PO BID 20 tabs 0RF 10 days prednisone PO daily; 4 tabs x 3 days, then 3 tabs x 3 days, then 2 tabs daily x 3 days, then 1 tab x 3 days to complete. 30 tabs 0RF 12 days Coding Level of Care Code Est Pt Level 4 (91607) Diagnoses Severe persistent asthma with acute exacerbation J45.51 Asthma complication type: with acute exacerbation Asthma persistence: persistent Asthma severity: severe Bronchitis J40 Mixed simple and mucopurulent chronic bronchitis J41.8 Chronic bronchitis type: mixed simple and mucopurulent Chronic allergic rhinitis J30.9 MARIMAR on CPAP G47.33; Z99.89 Time Spent (min) 17
[2024-04-04 09:59] VITALS: BP 134/62; PULSE 64; O2SAT 97; BMI 38.7
== END 2024-04-04 10:24 | disposition home or self-care (01) ==
PROVIDERS: PCP Physician Assistant; Visit Provider Hospitalist
DX: J45.51 Severe persistent asthma with (acute) exacerbation (principal); J40 Bronchitis, not specified as acute or chronic; J41.8 Mixed simple and mucopurulent chronic bronchitis; J30.9 Allergic rhinitis, unspecified; G47.33 Obstructive sleep apnea (adult) (pediatric); Z99.89 Dependence on other enabling machines and devices
CPT/HCPCS: 99214

== ENCOUNTER → 2024-04-04 09:55 | Outpatient (BNVA) | payer OTHER, SELFPAY | PROVIDERS: PCP Physician Assistant; Visit Provider Hospitalist ==

== ENCOUNTER 2024-09-06 10:46 | Outpatient (AMB) | payer OTHER, SELFPAY ==
--- NOTE | 2024-09-06 10:46 | A.OFFVIS_ITS ---
Vital Signs 09/06/24 10:47 Height 5 ft 3 in Weight 219 lb 5.759 oz BMI 38.9 BP 146/82 H Blood Pressure Location Lt brachial Position Sitting Pulse 79 Pulse Source Pulse Oximeter Pulse Oximetry (%) 96 Oxygen Delivery Method Room Air Intake Visit Reasons: Asthma Allergies pneumococcal vaccine Allergy (Severe, Verified 09/06/24 10:49) Arm swollen Seasonal Allergies Allergy (Intermediate, Uncoded 04/04/24 10:03) Rash HPI Comments Details: The patient is a 64-year-old woman with a known history of lifelong asthma in addition to obstructive sleep apnea. Apparently she has had episodes of her asthma getting worse. However, back in the winter in the fall of 2017 her asthma got much worse. She required multiple courses of prednisone on a monthly basis. She was then evaluated by Pulmonary and she was placed on a respiratory inhaler that provide her with some improvement of her symptoms. However, then she started having issues with her blood pressure. She has been labile higher low. She was evaluated also in the ER because of the blood pressure. She did have a CT scan of the chest done back in 2019 the ruled out pulmonary emboli and per report did not have any parenchymal disease. 01/12/2022 the patient is here for a pulmonary follow-up visit. Although overall she continues to do fairly well. She has had some episodes which she develops some chest tightness in addition to palpitations. The episodes are self-limiting. Typically she just stress to rest and she does not have to use any bronchodilator therapy. during the episodes she has noticed that her heart rate increases and she also documented that her oxygen may drop to the mid 80s. Today her vital signs are stable. She has had a full cardiac workup although it appears that she may have some episodes tachyarrhythmias or SVT. It appears that her symptoms restarted after having COVID. 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 The patient also has been time to go back to exercise. However, with these episodes she has become fights in about potential pulmonary worsening. Therefore, will have her undergo pulmonary function studies and see about getting her to pulmonary rehabilitation which she can start exercising under some surveillance in order to improve her respiratory capacity indoors. In the meantime she continues use her CPAP. CPAP therapy continues to be affecting beneficial. She does try to use it for more than 4 hours. She was little reluctant after having COVID. but she is using it more regularly. 07/17/2022 the patient is here for a pulmonary follow-up visit. The patient is doing well. She is responding well to the current respiratory regimen. Recently has an asthma flare requiring Prednisone. Now back to her baseline. She is tolerating the Trelegy very well. She still has episodes of shortness of breath and chest tightness. [id number]-[id number] severity. She does need to use her rescue inhaler those times. She is still responding to the Dupixent well. Although, she has developed a rash. She will try benadryl pre injections. If the rash worsens, then we will have to find and alternative. She is using her CPAP. The CPAP therapy continues to be affecting beneficial. She does try to use it more than 4 hours a night. 10/13/2022 the patient is here for a pulmonary follow-up visit. The patient overall has been doing well from a respiratory status. The regimen has been working well for her. She has not been on any prednisone. The patient is tolerating her medicines. Unfortunately, she is developing a worsening rash. Initially she was getting pruritus when using the Dupixent and had been taking Benadryl before the injection which appeared to be working. Now that we getting more sending days on and she is noticing more skin blemish. Some of the areas appeared to be acute care nurse practitioner in color and she is worried about vitiligo that may be induced by Dupixent. The area still not look like middle I go to me but they definitely look a little bit acute care nurse practitioner in pigmentation in a may be something that is potentially progressive. Therefore we did discuss a holding her injection for now and starting her on a lower dose. She is agreeable to this. The regimen has been very effective for her because she had a lot of exacerbations and quality of life was very poor. So, the ADL stopping the medication may resulting worsening respiratory symptoms therefore rather try to decrease the dose 1st to see if this is effective for her to find the lowest most effective dose with the last risk of any adverse effects. If she still has issues then will have to stop it altogether consider other potential interventions. In the meantime the patient continues her CPAP. CPAP therapy continues to be affecting beneficial. She does use it for more than 4 hours a night. Sometimes she has not increased productive cough in the morning. I did advise her to start her nasal rinsing to minimize nasal secretions. 04/16/2023 the patient is here for a pulmonary follow-up visit. The patient continues to do well. She had her Dupixent decrease to 200 mg and she is tolerating it well. She has noticed a slight rash but very minimal. No evidence of any better like go which is reassuring. She does complaint of headaches and abdominal discomfort. She is working on trying to figure out if this is the medication adverse effect. The I did recommend that if she continues to have discomfort she can consider decreasing the Daliresp it to every other day of 3 times a week to see if this improves her symptoms. Her current medical regimen as provide her with good stabilization of her asthma and respiratory symptoms therefore I would be careful to change any of her regimen. As far as her sleep she is using CPAP. CPAP therapy continues to be affecting beneficial. She does try to use it every night for more than 4 hours a night. Will continue to monitor her closely. Patient has any worsening adverse effects from the medications she will call me otherwise will follow-up in 6 months.. 10/11/2023 the patient is here for a pulmonary follow-up visit. Overall aarti rosen is doing okay. She is getting worked up for her GI discomfort. She is going to undergo a colonoscopy. The patient should be able to tolerate anesthesia without any difficulties. She also be in the hospital that she needs respiratory care they are present. That the patient seems to be working for her for her asthma. She has not had any asthma flare-ups while on the Dupixent which is reassuring. Although, she feels like she is still developing rashes from a. Back in August she had a rash in the face was not sure if it was Dupixent so she held it for some time. Then the rash happened again so then she suspect that it was not done Dupixent. Then she restarted Dupixent beginning of October. She has not had any adverse effects. Although she has noticed some skin changes in her arms. She rather have this can changes in her arms then have active asthma though. We did talk about although alternatives. For now though she will continue with the Dupixent. She will continue with respiratory therapy. She will continue to use her CPAP. CPAP therapy continues to be affecting beneficial she does use it every night for more than 4 hours. The patient returned 4 months or sooner if she develops any worsening issues with the Dupixent injection. She is going to retreat with Benadryl. She can take up to 50 mg of Benadryl prior to the Dupixent shot. 10/31/2023 the patient is here for a sick visit. Apparently she had a respiratory virus about 3 weeks ago and after that she has not been the same. She started developing some congestion. She did call the office and did we did prescribe her Augmentin and also prednisone. She is continue her respiratory therapy. Although she still does not feel well. She does complains of some epigastric discomfort. The symptoms of soreness in the epigastric area mid to lower area are consistent. Sometimes they worsened but for the most part they are always there. The patient does complain of some heartburn as well. Will go ahead and stop the Augmentin altogether since she is almost taking 10 days and she also take the prednisone. It may indeed be a component of esophagitis based on her medications. She is continued on the Dupixent. We have switched her over to every 3 weeks because of the rash issue but now that the rash is better and her symptoms are worse will go ahead and change her back to the every 2 weeks. She will get an x-ray today to make sure that everything is okay from the chest area and also an EKG. She is going to be started on a PPI she is going to monitor her epigastric discomfort. If the patient continues to have discomfort she should call and cancel her colonoscopy. Otherwise if the patient feels better she should move forward with. 04/04/2024 the patient is here for a pulmonary follow-up visit. She has been sick now for about 5 days. Her grandson got her sick. Has had a sore throat in addition to headaches myalgias and also started with a cough productive in nature with yellow sputum. She is also complaining of chest tightness and wheezing. She has been using her respiratory therapy more often with partial response. No recent imaging studies to review. Right now will treat her for bronchitis. She also has significant wheezing on exam and rhonchi consistent with an asthma exacerbation due to the illness. She will require prednisone. I will send taper but I did explain to her that she can taper little quickly that will be better for her. Will plan to follow-up in 4-6 months. If any issues arise she will call for an earlier assessment. 09/06/2024 the patient is here for pulmonary follow-up visit. Overall she is doing okay. She does have issues with her medications. She does need her medications because if she does not take them as prescribed she does start getting chest tightness wheezing and significant chest pressure and pain. The pain can be pretty moderate severity. However, the Daliresp does cause her to have some abdominal discomfort as well. She can not tolerate the 500 mcg dose and will go ahead and decrease down to 250 mcg dose. The other option will be to switch ovet to Ohtuvayre which will provide her some bronchodilator effect anti-inflammatory effect and will decrease the risk of the GI symptoms. The patient also has continue with the Dupixent. We had decreased the dose because she was having rashes. She is still having rashes. Right now she pretreats with antihistamines. She will continue to do that. Right now there is no other good option for her except test by her. Despite can also result in rashes as w ell. She is can we can consider switching if she continues have any worsening rashes. [facility] Medical History (Updated 09/06/24 @ 22:35 by Malick Dorsey MD) Pre-op chest exam Chest pain Rash Conversion disorder Hypercholesteremia Hypertension Chronic bronchitis Chronic allergic rhinitis Asthma Tachycardia MARIMAR on CPAP Asthma exacerbation attacks Family History Other Asthma Social History Household Members: Spouse Household Members Other:: Thuan Patient Tobacco Use Status: Never used Tobacco Second Hand Smoke Exposure: No Review of Systems Const Denies chills, Denies fatigue, Denies fever(s), Denies weight gain and Denies weight loss ENT Denies dizziness, Denies lip swelling and Denies tongue swelling Card Denies chest pain, Denies leg edema, Denies lightheadedness, Denies palpitations, Denies dyspnea on exertion, Denies orthopnea and Denies other Resp Denies cough, Denies dyspnea on exertion and Reports wheezing GI Denies hematochezia and Denies change in stool character Musc Denies abnormal gait, Denies muscle weakness, Denies numbness, Denies radiating pain into limb and Denies tingling Skin/Breast Reports change in pigmentation and Denies rash Neuro Denies abnormal gait, Denies dizziness, Denies numbness and Denies tingling Psych Denies anxiety Endo Denies fatigue and Denies palpitations Car/Lymph Denies easy bleeding and Denies lymphadenopathy Aller/Immun Denies lip swelling, Denies tongue swelling and Reports wheezing Physical Exam Vital Signs: Last Vital Signs Pulse 79 09/06/24 10:47 BP 146/82 H 09/06/24 10:47 Pulse Ox 96 09/06/24 10:47 Oxygen Delivery Method Room Air 09/06/24 10:47 BMI result Body Mass Index 38.9 Const General: alert Neck Neck: Yes normal visual inspection, Yes full ROM and Yes no lymphadenopathy Chest Chest palpation & inspection: normal inspection of the chest Resp Auscultation: wheezes and diminished lung sounds Cardio Rate: regular rate Rhythm: regular rhythm Heart sounds: S1 normal heart sound present and S2 normal heart sound present GI Palpation (GI): Soft to palpation and nontender Auscultation: normal bowel sounds Skin General skin exam: other (pale hypo pigmented areas on the arms and face) Assessment & Plan Assessment & Plan (1) Asthma: Code(s): J45.909 - Unspecified asthma, uncomplicated Category: Medical Qualifiers: Asthma complication type: uncomplicated Asthma persistence: persistent Asthma severity: severe Qualified Code(s): J45.50 - Severe persistent asthma, uncomplicated (2) Bronchitis: Code(s): J40 - Bronchitis, not specified as acute or chronic Category: Medical (3) Chronic bronchitis: Code(s): J42 - Unspecified chronic bronchitis Category: Medical Qualifiers: Chronic bronchitis type: mixed simple and mucopurulent Qualified Code(s): J41.8 - Mixed simple and mucopurulent chronic bronchitis (4) Chronic allergic rhinitis: Code(s): J30.9 - Allergic rhinitis, unspecified Category: Medical (5) MARIMAR on CPAP: Code(s): G47.33 - Obstructive sleep apnea (adult) (pediatric); Z99.89 - Dependence on other enabling machines and devices Category: Medical Plan continue Dupixent 200mg SC Q2 weeks, consider Tezspire if worsens allergy reactions Benadry 50mg, pre Dupixent continue Trelegy Xopenex as needed Good candidate for Ohtuvayre decrease Daliresp 250 to daily Continue zyrtec, astelin nasal spray tessalon pearls as needed for cough continue CPAP therapy, nasal mask and add chin strap. F/U 4-6 months Medications: Refilled roflumilast (Daliresp) 250 mcg PO DAILY 90 tabs 3RF 90 days Coding Level of Care Code Est Pt Level 4 (26764) Complex EM visit Add On G2211 Diagnoses Severe persistent asthma without complication J45.50 Asthma complication type: uncomplicated Asthma persistence: persistent Asthma severity: severe Bronchitis J40 Mixed simple and mucopurulent chronic bronchitis J41.8 Chronic bronchitis type: mixed simple and mucopurulent Chronic allergic rhinitis J30.9 MARIMAR on CPAP G47.33; Z99.89 Time Spent (min) 17
[2024-09-06 10:47] VITALS: BP 146/82; PULSE 79; O2SAT 96; BMI 38.9
--- OUTSIDE RECORDS SUMMARY | 2024-09-06 12:06 | XMS_ITS | Data Portability ---
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 Lab urinalysis, dipstick 2024 025 [facility], [address] [facility], [place], [address], 15:34:03 Referral None recorded. Procedures None recorded. Surgeries None recorded. Imaging XR, foot - worsening R heel pain. 2024 025 [facility] (Imaging), [address] , [place], [address], 13:07:12 Medication Orders ciclopirox 8 % topical solution 2024 025 [id number], [address] [place] [place], [place], [id number], 12:18:30 omeprazole 20 mg capsule,del ayed release 2024 025 [facility] #93124, [address] [place], [place], [id number], 5 11:55:05 Macrobid 100 mg capsule 2024 025 [facility] #35052, [address] [place], [place], [id number], 5 11:26:45 dicyclomine 10 mg capsule 2024 025 [facility] #53510, [address] [place], [place], [id number], 5 15:44:46 cetirizine 10 mg tablet 2024 025 [facility]00021, [address] [place], [place], [id number], 5 15:44:46 lorazepam 0.5 mg tablet 2024 025 [facility] #36759, [address] [place], [place], [id number], 5 15:44:49 Vitamin D3 50 mcg (2,000 unit) capsule 2023 024 [facility] #16324, [address] [place], [place], [id number], 4 15:59:38 Patient TargetsNo targets recorded. Patient Instructions Encounter Date Encounter Id Patient Instructions Last Modified By Organization Details Last Modified Time 08/08/2024 [id number] Dispensed prescription for ciclopirox solution to be applied toenail right hallux daily. Patient states she will pursue prefabricated orthotics and return if symptoms persist. jerskine Not available 08/08/2024 12:18:47 Reason for Referral None Reported. Results Created Date Observation Date Name Description Value Unit Range Abnormal Flag Note LastModifiedBy Organization Detail LastModifiedTime 10/04/19 24 10/05/2023 IMMUN OCHEM ICAL FECAL OCCUL T BLOOD ifobt NEGATI VE negati ve Not Available [address], [address], 10/05/2023 11:19:35 05/05/19 25 05/05/2024 POC UA glu UA NEGATI VE Not Available [facility] [address] [place] [address], [id number], 05/05/2024 15:34:03 05/05/19 25 05/05/2024 POC UA clarity UA SLIGHT LY CLOUDY Not Available [facility] [address] [place] [address], [address], 05/05/2024 15:34:03 05/05/19 25 05/05/2024 POC UA uro UA 0.2000 Not Available [facility] [address] [place] [address], [id number], 05/05/2024 15:34:03 05/05/19 25 05/05/2024 POC UA ket UA NEGATI VE Not Available [facility] [address] [place] [address], [id number], 05/05/2024 15:34:03 05/05/19 25 05/05/2024 POC UA pro UA 2+ abnormal Not Available [facility] [address] [place] [address], [id number], 05/05/2024 15:34:03 05/05/19 25 05/05/2024 POC UA nit UA NEGATI VE Not Available [facility] [address] [place] [address], [id number], 05/05/2024 15:34:03 05/05/19 25 05/05/2024 POC UA ericka UA 1+ abnormal Not Available [facility] [address] [place] [address], [id number], 05/05/2024 15:34:03 05/05/19 25 05/05/2024 POC UA pH UA 6.5000 Not Available [facility] [address] [place] [address], [address], 05/05/2024 15:34:03 05/05/19 25 05/05/2024 POC UA SG UA >=1.03 00 Not Available [facility] [address] [place] [address], [address], 05/05/2024 15:34:03 05/05/19 25 05/05/2024 POC UA color UA YELLOW Not Available [facility] [address] [place] [address], [id number], 05/05/2024 15:34:03 05/05/19 25 05/05/2024 POC UA blo UA 2+ abnormal Not Available [facility] [address] [place] [address], [address], 05/05/2024 15:34:03 05/05/19 25 05/05/2024 POC UA yomaira UA NEGATI VE Not Available [facility] [address] [place] [address], [address], 05/05/2024 15:34:03 08/10/19 25 08/09/2024 VITAM IN D 25-HY DROXY TOTAL vitamin D 25-hydroxy EIA 20.7 NG/mL 20.0-9 9.9 Thera py is based on measu remen t of total 25-OH D, with level s less than 20 ng/mL indic ative of Vitam in D defic iency . Level s betwe en 20ng/ mL and 30 ng/mL sugge st insuf ficie ncy. Optim al Level s are great er than 30 ng/mL . Not Available [address], [address], 08/09/2024 11:32:58 08/10/19 25 08/09/2024 BASIC METAB OLIC PANEL glucose 95 mg/dL 70-100 Not Available [address], [address], 08/09/2024 11:34:02 0408/09/2024 BASIC METAB OLIC PANEL BUN 14 mg/dL 7-18 Not Available [address], [address], 08/09/2024 11:34:02 08/10/1908/09/2024 BASIC METAB OLIC PANEL creatinine 0.8 mg/dL 0.8-1. 3 Not Available [address], [address], 08/09/2024 11:34:02 08/10/1908/09/2024 BASIC METAB OLIC PANEL B/C 17.5 ratio Not Available [address], [address], 08/09/2024 11:34:02 08/10/1908/09/2024 BASIC METAB OLIC PANEL GFR >=60ML /MIN mL/mi n normal >=60m L/min - Nikki l or midly reduc ed <60mL /min- Decre ased kidne y funct ion <15mL /min - Kidne y failu re [facility] calcu lates estim ated Glome rular Filtr ation Rate (eGFR ) using the Chron ic Kidne y Disea se Epide miolo gy Colla borat ion (CKD- EPI) Equat ion ([place] r et. al 2020) as recom sukhjinder d by the Natio nal Kidne y Found ation . eGFR is based on age, serum creat inine , and sex. CKD-E PI does not calcu late eGFR by race, does not apply to child marianne (age <18 years ), and shoul d not be used in pregn danyell. Not Available [address], [address], 08/09/2024 11:34:02 08/10/1908/09/2024 BASIC METAB OLIC PANEL sodium 142 mmol/ L 136-14 5 Not Available [address], [address], 08/09/2024 11:34:02 08/10/1908/0908/09/2024 BASIC METAB OLIC PANEL potassium 4.2 mmol/ L 3.5-5. 1 Not Available [address], [address], 08/09/2024 11:34:02 08/10/19 25 08/09/2024 BASIC METAB OLIC PANEL chloride 105 mmol/ L 96-107 Not Available [address], [address], 08/09/2024 11:34:02 08/10/19 25 08/09/2024 BASIC METAB OLIC PANEL anion gap 8.8 5.0-15 .0 Not Available [address], [address], 08/09/2024 11:34:02 08/10/19 25 08/09/2024 BASIC METAB OLIC PANEL CO2 28 mmol/ L 21-32 Not Available [address], [address], 08/09/2024 11:34:02 08/10/19 25 08/09/2024 BASIC METAB OLIC PANEL calcium 9.5 mg/dL 8.5-10 .3 Not Available [address], [address], 08/09/2024 11:34:02 08/10/19 25 08/09/2024 LIPID PANEL cholesterol 190 mg/dL <200 mg/dl Kel able 200-2 39 mg/dl Borde rline High >240 mg/dl High Not Available [address], [address], 08/09/2024 11:34:03 08/10/19 25 08/09/2024 LIPID PANEL triglyceride s 121 mg/dL <150 mg/dL Nikki l 150-1 99 mg/dL Borde rline High 200-4 99 mg/dL High >500 mg/dL Very High Not Available [address], [address], 08/09/2024 11:34:03 08/10/19 25 08/09/2024 LIPID PANEL direct HDL 84 mg/dL <40 mg/dl - Major Risk for CHD >60 mg/dl - Negat marko Risk for CHD Not Available [address], [address], 08/09/2024 11:34:03 08/10/19 25 08/09/2024 LDL - CALCU LATED LDL - calculated 82 RISK CATEG ORY LDL GOAL _ CHD or CHD Risk Equiv alent s <100 mg/dl (10-y ear risk >20%) 2+ Risk Facto rs <130 mg/dl (10-y ear risk <= 20%) 0-1 Risk Facto r? <160 mg/dl ? Almos t all peopl e with 0-1 risk facto r have a 10 year risk <10%, thus 10 year risk asses ment in peopl e with 0-1 risk facto r is not neces malcolm. Not Available [address], [address], 08/09/2024 11:34:04 12/20/19 24 11/30/2023 XR, chest No observ ation record ed. [email or web address] [facility] [address] [facility], [place], [address], 12/21/2023 10:24:48 05/09/19 25 05/09/2024 XR, foot CLINIC AL HISTOR Y: Right heel pain TECHNI QUE: AP, obliqu e, and latera l views of the right foot obtain ed. COMPAR OJ: None. FINDIN GS: There is no acute fractu re or disloc ation. Mild degene rative change s seen in the right first MTP joint. There is a small planta r spur. The soft tissue s are unrema rkable . IMPRES ROSANA: Mild DJD right first MTP joint. Small planta r spur. Readin g Physic rebeca[facility] [place] [address] (Imaging) [address] , [place], [address], 05/10/2024 14:36:23 07/26/1903/23/2024 MAMMO , scree silas, tomos ynthe sis, bilat eral No observ ation record ed. BARCODE Not Available 2024 11:49:55 07/26/1906/14/2024 colon oscop y scree silas (PROC ) No observ ation record ed. BARCODE Not Available 2024 12:32:58 Result Notes None recorded. Problems Name Problem SNOMED Code Status Onset Date Resolution Date Notes Provider Name and Address Organization Details Recorded Time Severe persiste nt asthma 141956219 Active [address] Mike strong PA [address] [place], [place] [address] [place], [address], [facility] 3 11:01:58 Essentia l hyperten rosana 48579573 Active 2020 ROSALEE Trinidad [address] [place], [place] [address] [place], [address], [facility] 3 11:01:42 Gastroes ophageal reflux disease 652951430 Active 2020 ROSALEE Trinidad [address] [place], [place] [address] [place], [address], [facility] 3 11:01:49 Strictur e of esophagu s 88856634 Completed 201902/01/2020 Removal Reason: s/p EGD and dilation CHRISTOPHER RUIZ MD [address] [place], [place] [address], [address], [facility] 14:55:33 Anxiety 77449575 Active 2020 ROSALEE Trinidad [address] [place], [place] [address] [place], [address], [facility] 3 11:01:39 Obstruct marko sleep apnea syndrome 68283013 Active 2020 uses CPAP ROSALEE Trinidad [address] [facility] [place], [address], [facility] 3 11:01:52 Pain of bilatera l knee joints 16059654816 4104 Active 2021 CHRISTOPHER RUIZ MD [address] [place], [place] [address], [address], [facility] 2 16:22:36 Chronic bronchit is 23710024 Active 2021 COPD - follows with Dr Mike strong PA [address] [place], [place] [address], [address], [facility] 3 11:01:41 Morbid obesity 781179014 Active 2021 BMI > or = 35 with diagnosi s of hyperten rosana Ponce LPN null, [facility] 2 12:38:03 Mild recurren t major depressi on 70700772 Active 2021 ROSALEE Trinidad [address] [place], [place] [address] [place], [address], [facility] 3 11:01:45 Mixed hyperlip idemia 240843065 Active 2021 ROSALEE Trinidad [address] [place], [place] [address] [place], [address], [facility] 3 11:01:47 Persiste nt breast nodulari ty 287611813 Active 2022 Left, gets q6 mo mammogra ms ROSALEE Trinidad [address] [facility] [place], [address], [facility] 3 11:01:55 Notes:Hysterectomy Problem Notes None recorded. Procedures Surgical History Date Name Laterality Status Provider Name and Address Organization Details Recorded Time 08/03/19 Asthma Control Test (12 + years old) completed Yesi Pate MA [facility] 08/03/2023 10:37:40 03/19/20 22 Cardiovascular disease risk reduction counseling completed ROSALEE Trinidad [address] [place], [address], [facility] 03/19/2022 13:05:01 08/15/19 Asthma Control Test (12 + years old) completed Wendi Ghosh CMA [facility] 08/14/2021 15:46:49 Total hysterectomy completed Lucina Morales PA-C [address] [place], [address], [facility] 07/06/2023 13:34:50 Imaging Results Imaging Date Name Status LastModified by Organiz ation Details LastModified Time 11/30/2023 XR, chest completed [email or web address] [address], [place], [address], 12/21/2023 10:24:48 05/09/2024 XR, foot completed [id number] (Imaging) [address], [place], [address], 05/10/2024 14:36:23 03/23/2024 MAMMO, screening, tomosynthesis, bilateral completed BARCODE Information not available 07/25/2024 11:49:55 06/14/2024 colonoscopy screening (PROC) completed BARCODE Information not available 07/25/2024 12:32:58 Procedure Notes None recorded. Medical Equipment None Reported. Allergies No known drug allergies Medications Name Sig Start Date Stop Date Status Note LastModified by Organization Details LastModified Time budesonid e 32 mcg/actua tion nasal spray SHAKE LIQUID AND USE 2 SPRAYS IN EACH NOSTRIL DAILY 12/08 completed aS needed Not Available Not Available Not Available prednison e 10 mg tablet TAKE 2 TABLETS BY MOUTH DAILY FOR 5 DAYS THEN TAKE 1 TABLET BY MOUTH DAILY FOR 5 DAYS 07/17 completed Not taking 05/05/24 cc Not Available Not Available Not Available doxycycli ne hyclate 100 mg capsule TAKE 1 CAPSULE BY MOUTH DAILY FOR 14 DAYS 05/29 completed Not Available Not Available Not Available ipratropi um 0.5 mg-albute rol 3 mg (2.5 mg base)/3 mL nebulizat ion soln U 3 ML VIA NEB BID 05/05 completed PRN // Not taking 08/03/23 cc Not Available Not Available Not Available albuterol sulfate 2.5 mg/3 mL (0.083 %) solution for nebulizat ion INHALE 2.5ML EVERY 6 HOURS NEEDED FOR WHEEZING . active Does not use 08/03/23 cc Not Available Not Available Not Available loperamid e 2 mg capsule 07/17 completed Not using 07/17/24 SD Not Available Not Available Not Available cetirizin e 10 mg tablet TAKE 1 TABLET BY MOUTH EVERY DAY active Not Available Not Available No t Available azithromy surya 250 mg tablet TAKE 1 TABLET BY MOUTH 3 TIMES A WEEK 07/30 completed pt take 1/2 tab wednesday and wednesday10/03/2021 xr Not Available Not Available Not Available benzonata te 200 mg capsule TAKE 1 CAPSULE BY MOUTH TWICE DAILY NEEDED FOR COUGH 12/08 completed finished course 08/12/22 Not Available Not Available Not Available ketotifen 0.025 % (0.035 %) eye drops INSTILL 1 DROP IN BOTH EYES TWICE DAILY NEEDED FOR ITCHING OR TEARING. active Seaonall y Not Available Not Available Not Available prednison e 20 mg tablet TAKE 2 TABLET BY MOUTH DAILY FOR 7 DAYS 07/30 completed Not Available Not Available Not Available peg-elect rolyte solution 420 gram oral solution 07/17 completed Not Available Not Available Not Available omeprazol e 40 mg capsule,d elayed release TAKE 1 CAPSULE BY MOUTH DAILY ON AN EMPTY STOMACH WAIT 30 MINUTES AND THEN EAT TO ACTIVATE MEDICATI ON active Not Available Not Available No t Available ciclopiro x 8 % topical solution APPLY TO THE AFFECTED AREA(S) BY TOPICAL ROUTE ONCE DAILY PREFERAB LY AT BEDTIME OR 8 HOURS BEFORE WASHING. Remove with rubbing alcohol once a week. active Not Available Not Available No t Available Tessalon Perles 100 mg capsule Take 1 capsule as needed by oral route. 2021 active per pulmonol gy note 01/12 - JLK PRN use, PRN Not Available Not Available Not Available lorazepam 0.5 mg tablet TAKE 1 TABLET BY MOUTH DAILY NEEDED FOR ANXIETY 2024 active Not Available Not Available Not Avai lable dicyclomi ne 20 mg tablet TAKE 2 TABLETS BY MOUTH FOUR TIMES DAILY NEEDED FOR MODERATE PAIN TAKE NEEDED FOR ABDOMINA L CRAMPS active Not Available Not Available No t Available diphenhyd ramine 25 mg capsule TAKE 1 CAPSULE BY MOUTH EVERY NIGHT AT BEDTIME NEEDED FOR ALLEGRIC REACTION S active Not Available Not Available No t Available buspirone 10 mg tablet TAKE 1 TABLET BY MOUTH TWICE DAILY 05/29 completed Not Available Not Available Not Available diphenhyd ramine 25 mg tablet TAKE 1 TABLET BY MOUTH EVERY DAY NEEDED FOR SLEEP 05/05 completed Not taking 08/03/23 cc Not Available Not Available Not Available lansopraz ole 30 mg capsule,d elayed release TAKE 1 CAPSULE BY MOUTH EVERY DAY 07/30 completed Not Available Not Available Not Available candesart an 16 mg tablet TAKE 1 TABLET BY MOUTH TWICE DAILY active Not Available Not Available No t Available ibuprofen 400 mg tablet TAKE 1 TABLET BY MOUTH EVERY 8 HOURS NEEDED FOR PAIN active Not Available Not Available No t Available omeprazol e 20 mg capsule,d elayed release TAKE 1 CAPSULE BY MOUTH EVERY DAY 2024 active Not Available Not Available Not Avai lable simethico ne 125 mg chewable tablet 05/29 completed Not Available Not Available Not Available monteluka st 10 mg tablet TAKE 1 TABLET BY MOUTH EVERY DAY active Not Available Not Available No t Available bisacodyl 5 mg tablet,de layed release 07/17 completed Not taking 07/17/24 SD Not Available Not Available Not Available mupirocin 2 % topical ointment APPLY THIN LAYER TO TO THE AFFECTED AREA TWICE DAILY FOR 2 WEEKS active as needed // Not using 08/03/23 cc Not Available Not Available Not Available levalbute rol 1.25 mg/3 mL solution for nebulizat ion INHALE 3 ML VIE NEBULIZE R TWICE DAILY 07/17 completed Not using 07/17/24 SD Not Available Not Available Not Available azelastin e 137 mcg (0.1 %) nasal spray USE 2 SPRAYS IN EACH NOSTRIL TWICE DAILY DIRECTED 12/08 completed Not Available Not Available Not Available polyethyl makenzie glycol 3350 17 gram/dose oral powder MIX AND DISSOLVE 17 GRAMS BY MOUTH ONCE DAILY 05/29 completed Not Available Not Available Not Available estradiol 0.01% (0.1 mg/gram) vaginal cream active Not taking 07/17/24 SD Not Available Not Available Not Available methylpre dnisolone 4 mg tablets in a dose pack FOLLOW PACKAGE DIRECTIO NS 05/05 completed Not taking 05/05/24 cc Not Available Not Available Not Available albuterol sulfate HFA 90 mcg/actua tion aerosol inhaler INHALE 2 PUFFS BY MOUTH EVERY 6 HOURS NEEDED FOR SHORTNES S OF BREATH OR WHEEZING active Not Available Not Available No t Available betametha sone dipropion ate 0.05 % topical ointment APPLY TOPICALL Y TO THE AFFECTED AREA DAILY [place] [facility] D[facility] ANDERSON CADA NOCHE AL PIEL EN EL PARTE AFUERA POR 4 SEMANAS 05/05 completed Not taking 08/03/23 cc Not Available Not Available Not Available clotrimaz ole 1 % topical cream APPLY TO THE AFFECTED AND SURROUND ING AREAS OF SKIN BY TOPICAL ROUTE TWICE DAILY IN THE MORNING AND EVENING. 05/05 completed as needed // Not taking 08/03/23 cc Not Available Not Available Not Available candesart an 8 mg tablet Take 1 tablet every day by oral route at bedtime. 02/20 completed Not Available Not Available Not Available dicyclomi ne 10 mg capsule TAKE 1 CAPSULE BY MOUTH FOUR TIMES DAILY NEEDED active Not Available Not Available No t Available amoxicill in 875 mg-potass ium clavulana te 125 mg tablet TAKE 1 TABLET BY MOUTH TWICE DAILY FOR 10 DAYS 05/05 completed Not Available Not Available Not Available verapamil ER 120 mg 24 hr capsule,e xtended release TAKE 1 CAPSULE BY MOUTH AT BEDTIME 03/13 completed Not Available Not Available Not Available escitalop gracia 10 mg tablet TAKE 1 TABLET BY MOUTH DAILY 10/14 completed Not taking this dose 10/15/23 cc Not Available Not Available Not Available rosuvasta tin 10 mg tablet TAKE 1 TABLET BY MOUTH EVERY DAY active Not Available Not Available No t Available escitalop gracia 5 mg tablet TAKE 1 TABLET BY MOUTH EVERY DAY active Not Available Not Available No t Available nitrofura ntoin monohydra te/macroc rystals 100 mg capsule TAKE 1 CAPSULE BY MOUTH EVERY 12 HOURS FOR 7 DAYS 07/17 completed Not Available Not Available Not Available lactulose 10 gram/15 mL oral solution TK 30 ML PO BID 05/29 completed Not Available Not Available Not Available Flovent HFA 110 mcg/actua tion aerosol inhaler INHALE 1 PUFF BY MOUTH TWICE DAILY 09/02 completed Not Available Not Available Not Available Flovent HFA 220 mcg/actua tion aerosol inhaler INHALE 2 PUFFS BY MOUTH TWICE DAILY 01/14 completed per pulminol ogist states only one puff 10/03/2021 xr. Stopped per pulmonol ogy note 01/12 - JLK Not Available Not Available Not Available Xopenex HFA 45 mcg/actua tion aerosol inhaler Inhale 2 puffs as needed by inhalati on route. 12/08 completed per pulmonol ogy note 01/12 - JLK Not Available Not Available Not Available cholecalc iferol (vitamin D3) 50 mcg (2,000 unit) capsule Take 1 capsule every day by oral route for 90 days. active Not Available Not Available No t Available cetirizin e 10 mg capsule Take by oral route. 05/29 completed Not Available Not Available Not Available ProChambe r USE DIRECTED active Not Available Not Available No t Available Felicia Allergy active per pulm note 08/11/21 / Not taking 08/03/23 cc Not taking 07/17/24 SD Not Available Not Available Not Available roflumila st 500 mcg tablet TAKE 1 TABLET BY MOUTH DAILY active Not Available Not Available No t Available Trelegy Ellipta 03/19 completed not taking 10/03/2021 xr, Pulm- Dr Melodie Romoyoke ) Not Available Not Available Not Available roflumila st 250 mcg tablet TAKE 1 TABLET BY MOUTH EVERY DAY active Not Available Not Available No t Available Dupixent 300 mg/2 mL subcutane ous pen injector Inject 300 mg every 2 weeks by subcutan eous route. 12/08 completed Not Available Not Available Not Available Trelegy Ellipta 200 mcg-62.5 mcg-25 mcg powder for inhalatio n INHALE 1 PUFF BY MOUTH DAILY active Not Available Not Available No t Available Dupixent 200 mg/1.14 mL subcutane ous pen injector active Not Available Not Available Not Available Paxlovid 300 mg (150 mg x 2)-100 mg tablets in a dose pack FOLLOW PACKAGE DIRECTIO NS 11/17 /2022 completed Not Available Not Available Not Available Vitals Date Recorded Body height Body mass index (BMI) Body weight Heart rate Systolic blood pressure Diastolic blood pressure Provider Name and Address Organization Details Last Updated DateTime 4 160.02 cm 37.6 kg/m2 50145.5 8 g 90 /min 134 mm[Hg] 68 mm[Hg] Yesi Pate MA [facility] 4 15:44:12 Date Recorded Body height Body mass index (BMI) Body weight Oxygen saturation Oxygen saturation in Arterial blood by Pulse oximetry Heart rate Body temperature Systolic blood pressure Diastolic blood pressure Provider Name and Address Organization Details Last Updated DateTime 5 160.02 cm 37.9 kg/m2 14685.7 7 g 97 % 97 % 79 /min 98.6 [degF] 138 mm[Hg] 76 mm[Hg] Yesi Pate MA [facility] 5 15:15:29 Date Recorded Body height Body mass index (BMI) Body weight Heart rate Oxygen saturation Oxygen saturation in Arterial blood by Pulse oximetry Systolic blood pressure Diastolic blood pressure Provider Name and Address Organization Details Last Updated DateTime 5 160.02 cm 37.6 kg/m2 32209.5 8 g 81 /min 97 % 97 % 130 mm[Hg] 72 mm[Hg] Emelyn George CMA [facility] 5 11:30:24 Date Recorded Body height Provider Name an d Address Organization Details Last Updated DateTime 08/08/2024 160.02 cm Larissa Hurtado [facility] 08/08/2024 11:40:17 Social History Question Answer Notes LastModified by Organizat ion Details LastModified Time Tobacco Smoking Status [facility]/20/2021 13:43:32 What Is Your Level Of Alcohol Consumption? None Information not available 05/29/2021 Are You Currently Employed? No Information not available 03/19/2022 What Type Of Diet Are You Following? REGULAR [email or web address] Information not available 03/19/2022 What Was The Date Of Your Most Recent Tobacco Screening? 07/17/2024 [email or web address] Information not available 07/17/2024 How Many Children Do You Have? 1 [email or web address] Information not available 03/19/2022 What Is Your Relationship Status? [email or web address] Information not available 03/19/2022 Do You Use Your Seat Belt Or Car Seat Routinely? Yes [email or web address] Information not available 03/19/2022 Do You Have Smoke And Carbon Monoxide Detectors In Your Home? Yes Information not available 03/19/2022 Are You Passively Exposed To Smoke? No Information no t available 03/19/2022 Do You Use Any Illicit Or Recreational Drugs? No Information not available 05/29/2021 Do You Or Have You Ever Used Any Other Forms Of Tobacco Or Nicotine? No Information not available 05/29/2021 Sex: Unknown Functional Status Question Answer Note LastModified by Organization D etails LastModified Time What is your exercise level? None [email or web address] Information not available 03/19/2022 Mental Status None recorded. Family History Nothing Reported Notes:05/24 (ENDO) Dad 1 (old age) Mom at 92 (CVA) 2 brothers one has diabetes. 9 sisters- one has thyroid. One son- healthy. 1 grandchild. Medical History No medical history recorded. Gynecological HistoryNo gynecological history recorded. Obstetrics History GPAL:G 0 P 0 0 0 0 Immunizations Vaccine Type Date Status Note Provider Nam e and Address Organization Details Recorded Time Influenza, split virus, quadrivalent, PF 05/16/2021 completed Susie Gan LPN [facility], [facility] 05/16/2021 11:16:52 Influenza, split virus, quadrivalent, PF 03/19/2022 completed Mona Torres MA null, [facility] 03/19/2022 15:59:27 Influenza, split virus, trivalent, PF 03/01/2024 completed Jennifer Jordan RN BSN null, [facility] 03/01/2024 14:02:58 Tdap 05/05/2024 completed DON Coffman null, [facility] 05/05/2024 15:58:19 COVID-19, mRNA, LNP-S, PF, 30 mcg/0.3 mL dose 07/17/2020 completed Wendi Ghosh, [employer] null, [facility] 03/13/2021 10:25:52 COVID-19, mRNA, LNP-S, PF, 30 mcg/0.3 mL dose 08/07/2020 completed Wendi Ghosh, [employer] null, [facility] 03/13/2021 10:25:59 COVID-19, mRNA, LNP-S, PF, 30 mcg/0.3 mL dose 03/18/2021 completed Livier Brian RN null, [facility] 05/29/2021 13:25:59 Past Encounters Encounter ID Performer Location Encounter Start Date Encounter Closed Date Diagnosis/Indication Diagnosis SNOMED-CT Code Diagnosis ICD10 Code Diagnosis Note [id number] CHRISTOPHER RUIZ MD , [facility], [address] [place] [address] 02/20/2021 13:28:01 02/20/2021 14:34:12 Essential hypertension 60800675 I10 uncontroll ed recently - can increase candesarta n to 16 mg BID, check BPs, as long as <130/80 and 100/50 or higher, can continue this dose. follow up with me in 3 weeks to recheck Thyroid nodule 282066691 E04.1 ordered US - she will let me know if she prefers to get this in [facility] d Atypical chest pain 1025 34077 R07.89 will follow up with Cardiology - Apr 01. Pt to give them my new address/ph one # so we can receive their notes. Persistent asthma 072274 6682 103 J45.50 continue meds, finish Dupixent and see Dr. Dorsey as planned on 03/10. See me that week [id number] CHRISTOPHER RUIZ MD , [facility], [address] [place] [address] 03/13/2021 10:13:06 03/18/2021 11:23:31 Essential hypertension 20562814 I10 Better controlled with increased candesarta n. Avoid sodium in diet. Plan to exercise more. Rpt BP check here was still 140/70. Follow up with me in 1 month. If BP remains elevated here or at home, can add a small dose of amlodipine . Pain in le ft lower limb 820218838 M79.605 multiple long car trips recently. r/o DVT.no significan t swellingSt at US ordered Addendum: US was negative for DVT, showed a popliteal cyst. I informed pt of results while she was still in facility. Discussed mgt of popliteal cyst - prob due to DJD, but she states physiatry ordered xrays of her knee in 2019 which were read as normal. Await old records before deciding whether rpt xrays to be done. No contraindi cation to Covid booster. Pain of ear 579618888 H9 2.09 no s/sx ear infection. see if change in MARIMAR treatment helps. Doubt mastoiditi s Pruritus of vulva 826596 00 L29.2 she will contact senior mortgage underwriter to be seentrial of antifungal cream meanwhile Gastroesop hageal reflux disease 753490212 K21.9 refill of Prevacid Severe per sistent asthma 757813421 J45.50 see pulm as scheduled Allergic rhinitis 483266 04 J30.9 unable to contact allergolog ist - I think [facility] may have closed that dept as well. I can Rx her cetirizine and montelukas t. Hypercholesterolemia 136 51648 E78.00 declines statin. ASCVD risk 6.6%, intermedia tediet/exe rcisereche ck in 3-6 months [id number] CHRISTOPHER RUIZ MD , [facility], [address] [place] [address] 04/14/2021 12:04:58 04/28/2021 13:11:49 Essential hypertension 44933874 I10 Discussed Hypertensi on: - Mediterran arnulfo diet - high in whole grains, fruist, vegetables good fats - Decreasing dietary sodium - reading labels for sodium content, not adding salt in cooking or at the table - Avoiding hidden sources of sodium including packaged, frozen, processed foods, condiments , restaurant foods and fast food - Importance of consistent physical activity, strategies for implementi ng an exercise habit Generalize d anxiety disorder 43834724 F41.1 controlled . I will refill Lexapro and lorazepam when she is due - let me know Pruritic rash 35238507 L 28.2 very mild - h x of very mild psoriasisa dvised use daily moisturizi ng lotion to prevent drynessOTC hydrocorti sone; let me know if needs mildly stronger topical steroid [id number] CHRISTOPHER RUIZ MD , [facility], OFFICE [address] [place] [address] 05/16/2021 11:05:43 05/19/2021 10:56:20 Active or passive immunization [id number] Slim Santamaria MD Endocrino clara, [facility] [address] [place] [address] 05/29/2021 13:12:58 05/29/2021 19:10:06 Non-toxic multinodular goiter 68255858 E04.2 U/S 03/23RIGHT : at least 7 nodules: Three < 0.5 cm. One is <0.8 cm.Right upper= 0.5x0.8x0. 4Right mid= 0.5x0.9x0. 4Right lower= 0.7x0.8x0. 5ISTHMUS= 0.9 x 0.9 x 0.5 cm.LEFT: 4 nodules. Three < 0.5 cm.Left lower= 0.4x0.8x0. 5cm. Try and get records from [facility] (now [facility])- she recalls seeing Endo there. No nodules appear to be high risk.If can get clear documentat ion of previous nodules, may not need much f/u.If documentat ion not clear (seems likely), would suggest repeat u/s in one year [id number] Elle Blue MD , [facility], [address]ICE [address] [place] [address] 07/14/2021 10:41:01 07/14/2021 11:27:04 Abdominal pain 07664943 R10.9 [id number] CHRISTOPHER RUIZ MD , [facility], OFFICE [address] [place] [address] 08/14/2021 15:35:30 08/14/2021 16:20:45 Essential hypertension 36831319 I10 Controlled . Continue current regimen. Discussed Hypertensi on: - Mediterran arnulfo diet - high in whole grains, fruits, vegetables good fats - Decreasing dietary sodium - reading labels for sodium content, not adding salt in cooking or at the table - Avoiding hidden sources of sodium including packaged, frozen, processed foods, condiments , restaurant foods and fast food - Importance of consistent physical activity, strategies for implementi ng an exercise habit Neck pain 05653734 M54.[address] Lee (physiatry ) - would like to follow upOK to take NSAIDs; watch BP. Left lower quadrant pain 784489638 R10.32 ongoing for 4 months, waxing and waning but always present. Concerned re: diverticul itis because pain sometimes severe [id number] CHRISTOPHER RUIZ MD , [facility], [address] [place] [address] 09/15/2021 12:14:01 09/16/2021 09:09:33 Left lower quadrant pain 207859323 R10.32 ongoing for 5 months, waxing and waning but always present. Concerned re: diverticul itis because pain sometimes severe - CT was completely normal. Due to persistenc e, will refer to GI. Onychomycosis 487235338 B35.1 right great toenail Anxiety 77146216 F41.9 refill meds until she can see a new PCP. Pain of bi lateral knee joints 7543101835 [address] Lee as she plans.We will send US report (of left leg r/o clot back in March) per pt requestI suspect DJD especially since she has a Rodriguez's cyst [id number] Elle Blue MD , [facility], [address] [place] [address] 10/03/2021 15:53:00 10/06/2021 09:55:01 COVID-19 248883726 U07.1 Acute uppe r respiratory infection 73775105 J06.9 Educated patient that URI is a viral illness of the upper airways. It is not bacterial and does not benefit from antibiotic s. Average duration of URI is 7-10 days but in a recent trial, treatment at 7-10 days of illness with antibiotic s, intranasal steroids, or placebo did not alter natural history at 3 weeks. Recommende d symptomati c treatments including NSAIDS, semi-uprig ht sleep position, antihistam wes at HS, limited course of nasal sympathomi metics and/or cough syrups, and nasal saline rinses with soft squeeze bottle or Neti pot. Return for fevers > 101 for 3 days, worsening sinus pain, or failure to resolve in 2-4 weeks. Essential hypertension 82403077 I10 Severe per sistent asthma 084761920 J45.50 [id number] Ar Quach MD , [facility], [address] [place] [address] 03/19/2022 11:19:03 03/19/2022 12:22:57 Adult health examination 521794430 Z00.00 Depression screening 171 025060 Z13.31 depression screening tool administer ed, entered into emr, scored and discussed, time greater than 7.5 minutes. as below. Screening for alcohol abuse 440985015 Z13.39 does not drink alcohol Counseling 416364347 Z71 .89 Cardiovasc ular risk reduction was discussed including benefits and risks of aspirin, exercise goals, healthy eating and healthy weight . Discussion greater than 7.5 minutes. Screening mammography 24 935456 Z12.31 UTD mely - records pending Screening for malignant neoplasm of cervix 944004018 Z12.4 done august 2020 per chart but pt unsure, will call and gets records Screening for malignant neoplasm of colon 450133393 Z12.11 Referral for a DIRECT booked colonoscop y. This patient is a healthy ASA Class 1 or 2 patient (only mild systemic disease), or a STABLE, well controlled insulin dependent diabetic. They do not have serious cardiac disease ie UT/angiopl asty within 1 year, symptomati c CHF; renal failure with CKD 4 or 5; take Coumadin, Plavix, Aggrenox, etc. Screening for disorder 708651754 Z11.59 routine screening for USPSTF guidelines for patient over 18 years old Active or passive immunization 558444084 Z23 flu vaccine- will do todayshing les vaccine- remindedte tanus vaccine- UTDpneumon ia vaccine- reminded Essential hypertension 38654065 I10 BP mildly above goal on recheckcon tinue current med regimensta rt home checksf/u 1 month to reassess Anxiety 80400652 F41.9 doing better now that asthma is more controlled has lorazepam to take as neededis also on Lexapro 10mg dailyBH services reviewed, encouraged to call as needed Chronic bronchitis 77342 004 J42 as above Severe per sistent asthma 725140367 J45.50 stable, follows with pulmonolog y Pain of bi lateral knee joints 1032442178 96185 M25.569 L>R recently, attributes to intermitte nt cystwill f/u with physiatry for this and intermitte nt neck/back pain, number from past referral given to schedule Morbid obesity 788631905 E66.01 BMI >35 with hx HTNcontinu e working on diet/exerc ise as discussed Mixed hyperlipidemia 267 749565 E78.2 newly on statindue for labs Mild recur rent major depression 75595809 F33.0 as above Left lower quadrant pain 608705475 R10.32 on/off for several months, no acute changes or concernspe nding appt with GI, pt thinks its in April Ar Quach MD , [facility], [address] [place] [address] 05/18/2022 13:44:03 05/18/2022 14:05:56 Essential hypertension 42496238 I10 BP at goal, continue current med regimenrec ent labs reviewed Mixed hyperlipidemia 267 033594 E78.2 ASCVD risk 3.8%Choles terol is at goalContin ue rosuvastat inContinue to work on diet and exercise as discussed Screening for malignant neoplasm of colon 505984165 Z12.11 Scheduled for next month Screening for malignant neoplasm of cervix 673891195 Z12.4 would like to see gynecologi st, number given to schedule Active or passive immunization 158293128 Z23 shingles vaccine- remindedte tanus vaccine- UTD Mild recur rent major depression 82084213 F33.0 as above Anxiety 78284937 F41.9 doing better now that asthma is more controlled has lorazepam to take as neededis also on Lexapro 10mg dailyBH services reviewed, encouraged to call as needed Chronic bronchitis 02894 004 J42 as above Severe per sistent asthma 598746755 J45.50 stable overall, in therapy with improvemen tfollows with pulmonolog y Pain of bi lateral knee joints 9818800460 37065 M25.569 L>R recently, attributes to intermitte nt cystno longer following with physiatry, interested in consult with Dr. Valdez, referral placed Morbid obesity 857207436 E66.01 BMI >35 with hx HTNcontinu e working on diet/exerc ise as discussed [id number] Chetan Valdez MD Sports Medicine, [address] [address] 08/12/2022 13:28:30 08/14/2022 15:20:59 Pain of left knee joint 5546585018 65001 M25.562 Marita is a 62-year-ol d female with bilateral knee pain that I believe is likely due to underlying osteoarthr itis. She has a rather benign exam today without a joint effusion or significan t joint line discomfort . I reviewed this potential cause of her symptoms today as well as discussing workup and treatment. We also reviewed the Rodriguez cyst seen on her ultrasound in 2020 and this relationsh ip intra-urban cular pathology. We discussed treatment of osteoarthr itis in general including the use of oral medication s and physical therapy as well as considerat ion of corticoste roid injections and potential surgery. At this point I have asked that she had weightbear ing x-rays done of both knees to evaluate for degenerati ve changes as a cause of her symptoms. I have also given her a referral to physical therapy. She will plan to follow up with me in 10 weeks if her symptoms have not improved. Pain of ri ght knee joint 7553794706 15849 M25.342 [id number] Slim Santamaria MD Endocrino logy, [address] [address] 07/30/2022 11:05:56 08/03/2022 15:53:29 Non-toxic multinodular goiter 16742406 E04.2 Preliminar y review from 07/23 shows multiple nodules on right, one in isthmus and one on left.All of these are sub-cm. No nodules appear to be high risk. If can get clear documentat ion of previous nodules, may not need much f/u. Suggest PCP can follow at this point- repeat u/s if any symptoms of dysphagia or dysphonia or changes on examinatio n. [id number] Ar Quach MD , [facility], [address]ICE [address] [place] [address] 12/08/2022 14:26:52 12/08/2022 15:09:45 Anxiety 06174369 F41.9 continues on lexapro 10mg dailywould like to taper off lorazepam - discussed slow taper down, start with 1/2 tab daily x 1 week then 1/4 tab daily x1 week, discussed could see Lauren if having concerns/i ssuesis also on Lexapro 10mg dailyBH services reviewed, encouraged to call as needed Chronic bronchitis 72316 004 J42 as above Essential hypertension 65550546 I10 BP at goal, continue current med regimen Mild recur rent major depression 37497147 F33.0 as above Mixed hyperlipidemia 267 793959 E78.2 Continue rosuvastat inrecheck labs prior to [place] Severe per sistent asthma 423595205 J45.50 worse with recent exacerbati on since treated with prednisone and abx by pulmonolog istreasswilber ance given lungs clear todayresta rting dupixant today and will f/u with pulmonolog y as scheduled, call sooner if no relief/wor sening Postmenopa usal bleeding 00949067 N95.0 single episode 3 months agodecline s pap or vaginal US at [facility], would like to consult obgyn, referral placed/num johnathan given for pt to call and schedule Skin hypopigmented 32608 000 L81.5 suspected due to high dose dupixant, dose change and f/u with pulmonolog y as above [id number] MD SHAVONNE Bacon, [facility], [address] [place] [address] 08/03/2023 10:16:23 08/03/2023 11:28:37 Adult health examination 445250427 Z00.00 patient is doing well, 6 mo f/u med management . Can follow up as needed Depression screening 171 396554 Z13.31 depression screening tool administer ed. no concerns at this time. Screening for alcohol abuse 881874839 Z13.39 Alcohol use screening tool administer ed. no concerns with use. Active or passive immunization 847513424 Z23 shingles vaccine- remindedte tanus vaccine- UTD?flu - UTD Screening for malignant neoplasm of colon 834102547 Z12.11 Referral for a DIRECT booked colonoscop y. This patient is a healthy ASA Class 1 or 2 patient (only mild systemic disease), or a STABLE, well controlled insulin dependent diabetic. They do not have serious cardiac disease ie UT/angiopl asty within 1 year, symptomati c CHF; renal failure with CKD 4 or 5; take Coumadin, Plavix, Aggrenox, etc. Severe per sistent asthma 767571396 J45.50 (symptoms or bronchodil ator use several times a day or extreme activity limitation due to asthma) Based on history, physical assessment , and peak flow, the patient's asthma {{is* is not}} in control. See orders for adjustment in plan. The asthma action plan has been discussed. The patient verbalizes understand ing of medication use. The patient is in agreement with this plan. Anxiety 31958767 F41.9 Has been taking 5 mg daily and her mood has been well controlled would like to taper off lorazepam - reviewed slow taper down, was having issues cutting pills, discussed options for splitting her dose. services reviewed, encouraged to call as needed Mixed hyperlipidemia 267 132778 E78.2 Continue rosuvastat inrepeat labs prior to next OV 6 mo med management Chronic bronchitis 47598 004 J42 well controlled at this timefollow ing with pulm, next appt October Essential hypertension 95476361 I10 mildly above goal today, at goal at home consistent lycontinue current regimen and home BP checks, f/u via portal in a few weeks, in person 6 mo w/ labs prior Mild recur rent major depression 04074820 F33.0 as above Bilateral plantar fasciitis 6541044866 1274528 M72.2 OTC care discussed, call if interested in referral for PT [id number] Ar Quach MD , [facility], [address] [place] [address] 10/15/2023 15:30:39 10/15/2023 21:44:04 Active or passive immunization 592381819 Z23 shingles vaccine- remindedte tanus vaccine- UTD?flu - UTD Anxiety 59644316 F41.9 doing well on lexapro 5mg at this time, continuego al to taper off lorazepam - reviewed slow taper down, was having issues cutting pills, again discussed options for splitting her dose. services reviewed, encouraged to call as needed, declines need at this time Essential hypertension 04616708 I10 mildly above goal today, at goal at home consistent lycontinue current regimen and home BP checks, f/u via portal in a few weeks, in person 6 mo w/ labs prior Screening for malignant neoplasm of colon 615053434 Z12.11 has colo scheduled 12/15, negative ifobt earlier this month Vitamin D deficiency 347 18166 E55.9 recently d/c vitamin D supplement , recheck level with labs [id number] Jolene Mariano , [facility], [address]ICE [address] [place] [address] 03/01/2024 13:45:23 03/01/2024 14:15:47 Active or passive immunization 826711764 Z23 [id number] ROSSANA GENTILE PA-C , [facility], [address] [place] [address] 05/05/2024 14:58:42 05/05/2024 16:50:55 Dysuria 21272454 R30.0 - symptoms and POC UA consistent with UTI- meds discussed including risks/bene fits and possible side effects- UTI education discussed including increasing fluids, avoidance of coffee and citrus foods/beve rages as these can contribute to bladder irritation , wiping front to back, voiding after intercours e- Call for worsening or persistent symptoms Active or passive immunization 204473571 Z23 Tdap - will get today 05/05/24 ccFlu - UTDShingle s/PCV20 - reminded Allergic rhinitis 088426 04 J30.9 refill requested, no acute concerns Anxiety 50585439 F41.9 doing well at this time with prn use of lorazepamn o acute concerns Abdominal pain 59258352 R10.9 ongoing concernben tyl helpful as neededhas GI f/u wednesdayis due for colonoscop y (and planning to discuss w/ them at appt) Urinary tr act infectious disease 93706467 N39.0 as above Pain in right foot 60624 83122 63341 M79.671 ongoing concern, interested in podiatry consultwil l also obtain imaging prior [id number] ROSSANA GENTILE PA-C , [facility], [address] [place] [address] 07/17/2024 11:18:33 07/17/2024 12:54:00 Screening for malignant neoplasm of colon 724103542 Z12.11 Due 2029, repeat was done 2024, will obtain results from [facility] 07/17/24 [place] Postmenopausal state 764 27291 Z78.0 Would like to do BMD at [facility] - unable to find order 07/17/24 [place] Anxiety 85820654 F41.9 doing well at this time overalllor azepam 0.5mg daily (has cut back from twice daily), she has the goal to trial every other day use then as needed use but is not ready at this timelexapr o 5mg - consider increase at next [facility], [facility] and signed today to continue lorazepam once daily for nowf/u q6 months or sooner as needed Chronic bronchitis 68893 004 J42 recently feeling less controlled but has not required increased inhaler uselungs clear today, O2 97%, reassuranc e givenf/u with pulmonolog y as planned next month Essential hypertension 09999743 I10 at goal <130/80con tinue candesarta n as prescribed Abdominal pain 16540203 R10.9 ongoing concernben tyl helpful as neededGI prescribed omeprazole to try, c/o palpitatio ns on 40mg dose, will trial 20mg dose and f/u with GI, discussed to STOP use if palpitatio ns happen again while usingdiscu ssed 1 week trial off statin to see if helpfulcol onoscopy done about a month ago and WNL- will request records Onychomyco sis of toenails 168936833 B35.1 will f/u with podiatry as scheduled 08/08 [id number] Rosalee Burleson MD Podiatry, [facility] [address] [place] [address] 08/08/2024 11:37:08 08/08/2024 12:20:05 Peroneal tendinitis of right lower limb 8926990989 09879 M76.71 Onychomycosis 840646889 B35.1 Health Concerns Section Related Observation LastModified by Organization Detai ls LastModified Time None Recorded Concern Status LastModified by Organization Details LastModified Time None Recorded Advance Directives Directive None Recorded Payers Encounter Date Sequence Insurance Name Policy Number Policy Hill Covered Member ID Hill Member ID Guarantor Name 10/15/2023 1 [employer] (PPO) RADHA Wallerna [id number] Nicki Wallerna 03/01/2024 1 [employer] (PPO) RADHA Wallerna [id number] Nicki Wallerna 05/05/2024 1 [employer] (PPO) RADHA Cordoba [id number] Nicki Wallerna 07/17/2024 1 [employer] - [employer] (PPO) RADHA Cordoba [id number] Nicki Wallerna 08/08/2024 1 [employer] - [employer] (PPO) RADHA Cordoba [id number] Nicki Cordoba Notes Date Note Type Note Provider Name and Address Organization Details Recorded Time 10/15/2023 text/html Physical Exam/FemaleReported bypatient.PHAPatient is here for a Wellness Visit. She describes her health status as . Patient's health is last year.Risk Assessment and Lifestyle Change Counseling 50-64Reported bypatient.Coronary Artery Disease Risk Assessment:No Family history of coronary artery disease; No personal history of diabetes; No history of peripheral vascular disease, AAA, or carotid disease; No personal history of coronary artery disease Breast Cancer Risk Assessment:No family history of breast cancer; No history of breast cancer or dcis Colon Cancer Risk Assessment:No family history of colon polyps or cancer; No history of adenomatous colon polyps Lung Cancer Risk Assessment:Never smoked; No asbestos exposure Fracture Risk Assessment:No unexplained fracture Cognitive/Behavioral Risk Assessment:Personal history of mental illnes Safety Risk Assessment:No evidence of abuse/neglect Diet:Counseled about appropriate portion size; Counseled about eating a diet low in trans and saturated fats and high in fiber, fruits and vegetables; Counseled about appropriate calcium intake and good dietary sources of calcium.; Counseled about the importance of maintaining a positive calcium balance and taking 1000 iu Vitamin D daily.; Counseled about decreasing carbohydrates; Counseled about decreasing salt in diet; Discussed the value of a Mediterranean diet , and eating more fruits and vegetables Exercise counseling:Discussed the importance of daily physical activity; Discussed the importance of weight bearing exercise; limited right now due to knee pain on/off Safety:Counseled about protecting skin from the sun and lowering the risk of skin cancer; Counseled about avoiding excessive and unsafe alcohol intake 10/15/23- discuss medsno concerns, would like to discuss labs 08/03/23-Things are going well. States her breathing has been good, only uses her inhaler as needed, about 3 times per week. Reports using her CPAP nightly, sleep has been good. Diet could be better, tries to cook at home but does eat out occasionally. Doesnt get much exercise but cares for her grandchild so chases them around the house. Denies smoking or alcohol use. Has been having some dry eyes, started using eye drops and that is helping. Is current with the dentist and opthamology, uses glasses for reading. Reports last colonoscopy was about 10-12 years ago, she is seeing GI at [facility] and is waiting for them to schedule a colonoscopy. Has noticed headaches and thinks it related to her lexapro. She reports taking half of her dose duse to this and that is has helped her headaches and her anxiety is well managed. Was hoping to take half of her lorazepam as well but struggles to cut it. Has been taking daily since Covid started, does not want to take forever. 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 doing generally well recentlymain concern was asthma/COPD but feels this is well controlled at this time, sees corporate consultant regularlycyst in left knee, bothers when walking, not seeing specialist but was referred for neck, does not have number but would like to see ROSALEE Trinidad [address] [place] [address], [place], [phone], [facility] 10/15/2023 16:05:22 05/05/2024 text/html Urinary FrequencyReported bypatient.SymptomsSymp toms began 1 days ago;Urinary frequency;Burning;Urge ncy; No fever; No chills;Back pain; No nausea; No vomiting;Frequent previous UTINotes:asthma flare up 1 mo ago - saw pulmsince w/ cough has some leaking urinesome stomach discomfortsome hematuria - pinkno fever/chillsno vaginal odor/discharge has GI appt mon to f/u on getting colo scheduledcouldnt get it before due to asthma flare upalso c/o ongoing worsening R heel pain, would like to see podiatry 05/05/24- UTI ROSSANA GENTILE PA-C [address] [place] [address], [phone], [facility] 05/05/2024 16:10:47 07/17/2024 text/html Physical Exam/FemaleReported bypatient.PHAPatient is here for a Wellness Visit. She describes her health status as . Patient's health is last year.Risk Assessment and Lifestyle Change Counseling 50-64Reported bypatient.Coronary Artery Disease Risk Assessment:No Family history of coronary artery disease; No personal history of diabetes; No history of peripheral vascular disease, AAA, or carotid disease; No personal history of coronary artery disease Breast Cancer Risk Assessment:No family history of breast cancer; No history of breast cancer or dcis Colon Cancer Risk Assessment:No family history of colon polyps or cancer; No history of adenomatous colon polyps Lung Cancer Risk Assessment:Never smoked; No asbestos exposure Fracture Risk Assessment:No unexplained fracture Cognitive/Behavioral Risk Assessment:Personal history of mental illnes Safety Risk Assessment:No evidence of abuse/neglect Diet:Counseled about appropriate portion size; Counseled about eating a diet low in trans and saturated fats and high in fiber, fruits and vegetables; Counseled about appropriate calcium intake and good dietary sources of calcium.; Counseled about the importance of maintaining a positive calcium balance and taking 1000 iu Vitamin D daily.; Counseled about decreasing carbohydrates; Counseled about decreasing salt in diet; Discussed the value of a Mediterranean diet , and eating more fruits and vegetables Exercise counseling:Discussed the importance of daily physical activity; Discussed the importance of weight bearing exercise; limited right now due to knee pain on/off Safety:Counseled about protecting skin from the sun and lowering the risk of skin cancer; Counseled about avoiding excessive and unsafe alcohol intake 07/17/24 Here for med mgmt, no concerns. SDc/o slight increase in the COPD symptoms, tight chest in am then improves, seeing pulm next mo, not using albuterol more oftenwas put on omeprazole 40mg by GI and felt heart racing on it, ? lower dose; no heart racing sincetoe nail concern L great toe 10/15/23- discuss medsno concerns, would like to discuss labs 08/03/23-Things are going well. States her breathing has been good, only uses her inhaler as needed, about 3 times per week. Reports using her CPAP nightly, sleep has been good. Diet could be better, tries to cook at home but does eat out occasionally. Doesnt get much exercise but cares for her grandchild so chases them around the house. Denies smoking or alcohol use. Has been having some dry eyes, started using eye drops and that is helping. Is current with the dentist and opthamology, uses glasses for reading. Reports last colonoscopy was about 10-12 years ago, she is seeing GI at [facility] and is waiting for them to schedule a colonoscopy. Has noticed headaches and thinks it related to her lexapro. She reports taking half of her dose duse to this and that is has helped her headaches and her anxiety is well managed. Was hoping to take half of her lorazepam as well but struggles to cut it. Has been taking daily since Covid started, does not want to take forever. 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 Patient states she has been experiencing pain when walking for approximately the past 6 months. Patient also complains of thickened and discolored toenail of her right big toe. Patient states condition has been present for a long time. Sanjiv Amador DPM [address] [place] [address], [place], [phone], [facility] 08/08/2024 12:18:59 OBGyn Episode No OBEpisode recorded.
== END 2024-09-06 11:27 | disposition home or self-care (01) ==
LOC: HO.HPS 10:46
PROVIDERS: PCP Physician Assistant; Visit Provider Hospitalist
DX: J45.50 Severe persistent asthma, uncomplicated (principal); J40 Bronchitis, not specified as acute or chronic; J41.8 Mixed simple and mucopurulent chronic bronchitis; J30.9 Allergic rhinitis, unspecified; G47.33 Obstructive sleep apnea (adult) (pediatric); Z99.89 Dependence on other enabling machines and devices
CPT/HCPCS: 99214; G2211

== ENCOUNTER → 2024-09-06 10:46 | Outpatient (BNVA) | payer OTHER, SELFPAY | PROVIDERS: PCP Physician Assistant; Visit Provider Hospitalist ==

== ENCOUNTER 2025-03-22 14:15 | Outpatient (AMB) | payer OTHER, SELFPAY ==
[2025-03-22 14:22] VITALS: BP 140/68; PULSE 84; O2SAT 95; BMI 39.4
--- NOTE | 2025-03-22 14:22 | A.OFFVIS_ITS ---
Vital Signs 03/22/25 14:22 Height 5 ft 3 in Weight 222 lb 10.67 oz BMI 39.4 BP 140/68 H Blood Pressure Location Lt brachial Position Sitting Pulse 84 Pulse Source Pulse Oximeter Pulse Oximetry (%) 95 Oxygen Delivery Method Room Air Intake Visit Reasons: Asthma Document Scanner Required: Yes Document Scanner Services: Document Scanner Offered & Declined Document Scanner Name: MD speaks [place] Accompanied by: Self / Same As Patient Allergies pneumococcal vaccine Allergy (Severe, Verified 03/22/25 14:24) Arm swollen Seasonal Allergies Allergy (Intermediate, Uncoded 04/04/24 10:03) Rash HPI Comments Details: The patient is a 64-year-old woman with a known history of lifelong asthma in addition to obstructive sleep apnea. Apparently she has had episodes of her asthma getting worse. However, back in the winter in the fall of 2017 her asthma got much worse. She required multiple courses of prednisone on a monthly basis. She was then evaluated by Pulmonary and she was placed on a respiratory inhaler that provide her with some improvement of her symptoms. However, then she started having issues with her blood pressure. She has been labile higher low. She was evaluated also in the ER because of the blood pressure. She did have a CT scan of the chest done back in 2019 the ruled out pulmonary emboli and per report did not have any parenchymal disease. 01/12/2022 the patient is here for a pulmonary follow-up visit. Although overall she continues to do fairly well. She has had some episodes which she develops some chest tightness in addition to palpitations. The episodes are self-limiting. Typically she just stress to rest and she does not have to use any bronchodilator therapy. during the episodes she has noticed that her heart rate increases and she also documented that her oxygen may drop to the mid 80s. Today her vital signs are stable. She has had a full cardiac workup although it appears that she may have some episodes tachyarrhythmias or SVT. It appears that her symptoms restarted after having COVID. 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 The patient also has been time to go back to exercise. However, with these episodes she has become fights in about potential pulmonary worsening. Therefore, will have her undergo pulmonary function studies and see about getting her to pulmonary rehabilitation which she can start exercising under some surveillance in order to improve her respiratory capacity indoors. In the meantime she continues use her CPAP. CPAP therapy continues to be affecting beneficial. She does try to use it for more than 4 hours. She was little reluctant after having COVID. but she is using it more regularly. 07/17/2022 the patient is here for a pulmonary follow-up visit. The patient is doing well. She is responding well to the current respiratory regimen. Recently has an asthma flare requiring Prednisone. Now back to her baseline. She is tolerating the Trelegy very well. She still has episodes of shortness of breath and chest tightness. Mcoz-vr-mpyvnmoy severity. She does need to use her rescue inhaler those times. She is still responding to the Dupixent well. Although, she has developed a rash. She will try benadryl pre injections. If the rash worsens, then we will have to find and alternative. She is using her CPAP. The CPAP therapy continues to be affecting beneficial. She does try to use it more than 4 hours a night. 10/13/2022 the patient is here for a pulmonary follow-up visit. The patient overall has been doing well from a respiratory status. The regimen has been working well for her. She has not been on any prednisone. The patient is tolerating her medicines. Unfortunately, she is developing a worsening rash. Initially she was getting pruritus when using the Dupixent and had been taking Benadryl before the injection which appeared to be working. Now that we getting more sending days on and she is noticing more skin blemish. Some of the areas appeared to be director property in color and she is worried about vitiligo that may be induced by Dupixent. The area still not look like middle I go to me but they definitely look a little bit director property in pigmentation in a may be something that is potentially progressive. Therefore we did discuss a holding her injection for now and starting her on a lower dose. She is agreeable to this. The regimen has been very effective for her because she had a lot of exacerbations and quality of life was very poor. So, the ADL stopping the medication may resulting worsening respiratory symptoms therefore rather try to decrease the dose 1st to see if this is effective for her to find the lowest most effective dose with the last risk of any adverse effects. If she still has issues then will have to stop it altogether consider other potential interventions. In the meantime the patient continues her CPAP. CPAP therapy continues to be affecting beneficial. She does use it for more than 4 hours a night. Sometimes she has not increased productive cough in the morning. I did advise her to start her nasal rinsing to minimize nasal secretions. 04/16/2023 the patient is here for a pulmonary follow-up visit. The patient continues to do well. She had her Dupixent decrease to 200 mg and she is tolerating it well. She has noticed a slight rash but very minimal. No evidence of any better like go which is reassuring. She does complaint of headaches and abdominal discomfort. She is working on trying to figure out if this is the medication adverse effect. The I did recommend that if she continues to have discomfort she can consider decreasing the Daliresp it to every other day of 3 times a week to see if this improves her symptoms. Her current medical regimen as provide her with good stabilization of her asthma and respiratory symptoms therefore I would be careful to change any of her regimen. As far as her sleep she is using CPAP. CPAP therapy continues to be affecting beneficial. She does try to use it every night for more than 4 hours a night. Will continue to monitor her closely. Patient has any worsening adverse effects from the medications she will call me otherwise will follow-up in 6 months.. 10/11/2023 the patient is here for a pulmonary follow-up visit. Overall she is doing okay. She is getting worked up for her GI discomfort. She is going to undergo a colonoscopy. The patient should be able to tolerate anes thesia without any difficulties. She also be in the hospital that she needs respiratory care they are present. That the patient seems to be working for her for her asthma. She has not had any asthma flare-ups while on the Dupixent which is reassuring. Although, she feels like she is still developing rashes from a. Back in August she had a rash in the face was not sure if it was Dupixent so she held it for some time. Then the rash happened again so then she suspect that it was not done Dupixent. Then she restarted Dupixent beginning of October. She has not had any adverse effects. Although she has noticed some skin changes in her arms. She rather have this can changes in her arms then have active asthma though. We did talk about although alternatives. For now though she will continue with the Dupixent. She will continue with respiratory therapy. She will continue to use her CPAP. CPAP therapy continues to be affecting beneficial she does use it every night for more than 4 hours. The patient returned 4 months or sooner if she develops any worsening issues with the Dupixent injection. She is going to retreat with Benadryl. She can take up to 50 mg of Benadryl prior to the Dupixent shot. 10/31/2023 the patient is here for a sick visit. Apparently she had a respiratory virus about 3 weeks ago and after that she has not been the same. She started developing some congestion. She did call the office and did we did prescribe her Augmentin and also prednisone. She is continue her respiratory therapy. Although she still does not feel well. She does complains of some epigastric discomfort. The symptoms of soreness in the epigastric area mid to lower area are consistent. Sometimes they worsened but for the most part they are always there. The patient does complain of some heartburn as well. Will go ahead and stop the Augmentin altogether since she is almost taking 10 days and she also take the prednisone. It may indeed be a component of esophagitis based on her medications. She is continued on the Dupixent. We have switched her over to every 3 weeks because of the rash issue but now that the rash is better and her symptoms are worse will go ahead and change her back to the every 2 weeks. She will get an x-ray today to make sure that everything is okay from the chest area and also an EKG. She is going to be started on a PPI she is going to monitor her epigastric discomfort. If the patient continues to have discomfort she should call and cancel her colonoscopy. Otherwise if the patient feels better she should move forward with. 04/04/2024 the patient is here for a pulmonary follow-up visit. She has been sick now for about 5 days. Her grandson got her sick. Has had a sore throat in addition to headaches myalgias and also started with a cough productive in nature with yellow sputum. She is also complaining of chest tightness and wheezing. She has been using her respiratory therapy more often with partial response. No recent imaging studies to review. Right now will treat her for bronchitis. She also has significant wheezing on exam and rhonchi consistent with an asthma exacerbation due to the illness. She will require prednisone. I will send taper but I did explain to her that she can taper little quickly that will be better for her. Will plan to follow-up in 4-6 months. If any issues arise she will call for an earlier assessment. 09/06/2024 the patient is here for pulmonary follow-up visit. Overall she is doing okay. She does have issues with her medications. She does need her medications because if she does not take them as prescribed she does start getting chest tightness wheezing and significant chest pressure and pain. The pain can be pretty moderate severity. However, the Daliresp does cause her to have some abdominal discomfort as well. She can not tolerate the 500 mcg dose and will go ahead and decrease down to 250 mcg dose. The other option will be to switch ovet to Ohtuvayre which will provide her some bronchodilator effect anti-inflammatory effect and will decrease the risk of the GI symptoms. The patient also has continue with the Dupixent. We had decreased the dose because she was having rashes. She is still having rashes. Right now she pretreats with antihistamines. She will continue to do that. Right now there is no other good option for her except test by her. Despite can also result in rashes as well. She is can we can consider switching if she continues have any worsening rashes. 03/22/2025 the patient is here for pulmonary follow-up visit. She is sick now she has developed sinusitis. She went to her primary care she was placed on Augmentin. She is also was given prednisone but she was concerned about taking the prednisone at this time. I did prescribe Afrin that she can take for up to 5 days to try to help with the nasal congestion in the meantime. She can also try Sudafed lower dose in case that it increases her blood pressure. The patient also continues with the Dupixent. She is wondering if she can continue Dupixent for now. At this point I do believe she should continues Dupixent until we evaluate her in the springtime. There is no other potential alternative that we can use at this time. She continues also in the Daliresp and continues with respiratory therapy. Will continue with all her medications at this time and will follow-up in the spring. If any issues arise she will call for an earlier assessment. Also to note she is using her CPAP although she has not been able to use it while dealing with the sinusitis. The CPAP therapy has been affecting beneficial and she does use it for >4 hours a night. [facility] Medical History (Updated 09/06/24 @ 22:35 by Malick Dorsey MD) Pre-op chest exam Chest pain Rash Conversion disorder Hypercholesteremia Hypertension Chronic bronchitis Chronic allergic rhinitis Asthma Tachycardia MARIMAR on CPAP Asthma exacerbation attacks Family History Other Asthma Social History Household Members: Spouse Household Members Other:: Thuan Patient Tobacco Use Status: Never used Tobacco Second Hand Smoke Exposure: No Review of Systems Const Denies chills, Denies fatigue, Denies fever(s), Denies weight gain and Denies weight loss ENT Denies dizziness, Denies lip swelling, Reports nasal congestion, Reports nasal discharge, Reports nasal obstruction, Reports sinus pressure and Denies tongue swelling Card Denies chest pain, Denies leg edema, Denies lightheadedness, Denies palpitations, Denies dyspnea on exertion, Denies orthopnea and Denies other Resp Denies cough, Denies dyspnea on exertion and Reports wheezing GI Denies hematochezia and Denies change in stool character Musc Denies abnormal gait, Denies muscle weakness, Denies numbness, Denies radiating pain into limb and Denies tingling Skin/Breast Reports change in pigmentation and Denies rash Neuro Denies abnormal gait, Denies dizziness, Denies numbness and Denies tingling Psych Denies anxiety Endo Denies fatigue and Denies palpitations Car/Lymph Denies easy bleeding and Denies lymphadenopathy Aller/Immun Denies lip swelling, Denies tongue swelling and Reports wheezing Physical Exam Vital Signs: Last Vital Signs Pulse 84 03/22/25 14:22 BP 140/68 H 03/22/25 14:22 Pulse Ox 95 03/22/25 14:22 Oxygen Delivery Method Room Air 03/22/25 14:22 BMI result Body Mass Index 39.4 Const General: alert Neck Neck: Yes normal visual inspection, Yes full ROM and Yes no lymphadenopathy Chest Chest palpation & inspection: normal inspection of the chest Resp Effort & Inspection: normal respiratory effort Auscultation: no wheezes and diminished lung sounds Cardio Rate: regular rate Rhythm: regular rhythm Heart sounds: S1 normal heart sound present and S2 normal heart sound present GI Palpation (GI): Soft to palpation and nontender Auscultation: normal bowel sounds Skin General skin exam: other (pale hypo pigmented areas on the arms and face) Assessment & Plan Assessment & Plan (1) Asthma: Code(s): J45.909 - Unspecified asthma, uncomplicated Category: Medical Qualifiers: Asthma complication type: uncomplicated Asthma persistence: persistent Asthma severity: severe Qualified Code(s): J45.50 - Severe persistent asthma, uncomplicated (2) Bronchitis: Code(s): J40 - Bronchitis, not specified as acute or chronic Category: Medical (3) Chronic bronchitis: Code(s): J42 - Unspecified chronic bronchitis Category: Medical Qualifiers: Chronic bronchitis type: mixed simple and mucopurulent Qualified Code(s): J41.8 - Mixed simple and mucopurulent chronic bronchitis (4) Chronic allergic rhinitis: Code(s): J30.9 - Allergic rhinitis, unspecified Category: Medical (5) MARIMAR on CPAP: Code(s): G47.33 - Obstructive sleep apnea (adult) (pediatric); Z99.89 - Dependence on other enabling machines and devices Category: Medical Plan continue Dupixent 200mg SC Q2 weeks, consider Tezspire if worsens allergy reactions Benadry 50mg, pre Dupixent continue Trelegy Xopenex as needed Good candidate for Ohtuvayre Daliresp 250 to daily Continue zyrtec, astelin nasal spray tessalon pearls as needed for cough continue CPAP therapy, nasal mask and add chin strap. continue augmentin start Afrin consider psudophed F/U 4-6 months Medications: New oxymetazoline 0.05% (Afrin (oxymetazoline)) 2 sprays intranasal Q12H PRN 22 mL 0RF nasal congestion 5 days Coding Level of Care Code Complex visit Add On G2211 Diagnoses Severe persistent asthma without complication J45.50 Asthma complication type: uncomplicated Asthma persistence: persistent Asthma severity: severe Bronchitis J40 Mixed simple and mucopurulent chronic bronchitis J41.8 Chronic bronchitis type: mixed simple and mucopurulent Chronic allergic rhinitis J30.9 MARIMAR on CPAP G47.33; Z99.89 Time Spent (min) 17
--- OUTSIDE RECORDS SUMMARY | 2025-03-22 19:42 | XMS_ITS | Clinical Summary ---
Author Organization [address] Address [address] [place] [phone] Phone Care Team Providers Care Cafeteria Operator Name Role Phone Mady Corrales JANETT Primary Care Provider [phone] Allergies Active Allergy Reactions Criticality Noted Date Comments Pneumococcal 23-Valent Polysaccharide Vaccine 02/03/2018 Had swelling and redness of site, significant pain in the area and in ipsilateral axilla Medications escitalopram (LEXAPRO) 5 mg tablet Take 1 tablet (5 mg total) by mouth 1 (one) time each day. Active LORazepam (ATIVAN) 0.5 mg tablet Take 1 tablet (0.5 mg total) by mouth 1 (one) time each day if needed for anxiety. Active candesartan (ATACAND) 16 mg tablet TAKE 1 BY MOUTH TWICE DAILY Active cholecalciferol (VITAMIN D-3) 50 mcg (2,000 unit) capsule Take 1 capsule (2,000 Units total) by mouth 1 (one) time each day. Active montelukast (SINGULAIR) 10 mg tablet Take 1 tablet (10 mg total) by mouth. 0 Active cetirizine (ZyrTEC) 10 mg tablet Take 1 tablet (10 mg total) by mouth 1 (one) time each day. Active Trelegy Ellipta 200-62.5-25 mcg inhaler 4 Active Dupixent Pen 200 mg/1.14 mL pen Inject 1.14 mL (200 mg total) under the skin. 3 Active omeprazole (PriLOSEC) [address] capsule Take 1 capsule (40 mg total) by mouth 2 times daily. 4 Active albuterol HFA (PROAIR HFA ; PROVENTIL HFA ; VENTOLIN HFA) 90 mcg/actuation inhaler INHALE 2 PUFFS INTO THE LUNGS EVERY 6 HOURS NEEDED FOR COUGH OR WHEEZING OR SHORTNESS OF BREATH 1 Active omeprazole (PriLOSEC) [address] capsule Take 1 capsule (40 mg total) by mouth 1 (one) time each day. Take on empty stomach, wait 30 mins and then eat to activate the medication 30 each 05/08/19 26 Active loperamide (Imodium A-D) 2 mg tablet Take 1 tablet (2 mg total) by mouth 4 (four) times a day if needed for diarrhea. 60 tablet 5 Active Encounters Date Type Department Care Team Description 03/13/2025 9:21 AM EST - 03/13/2025 11:59 PM EST Hospital Encounter [facility] Bone Density [address] [place] [phone] Asymptomatic menopause Discharge Disposition: Home or Self Care from Last 3 Months Surgical History Surgery Date Site/Laterality Comments SECTION PROCEDURE: HISTORICAL DELIVERY COLONOSCOPY 2002 PROCEDURE: HISTORICAL COLONOSCOPY; COMMENT: negative, done in [place] COLONOSCOPY 2007 PROCEDURE: HISTORICAL COLONOSCOPY; COMMENT: one small polyp, done in [place] COLONOSCOPY 07/04/2012 PROCEDURE: IN COLONOSCOPY FLX DX W/COLLJ SPEC WHEN PFRMD; COMMENT: no polyps. BREAST SURGERY 1999 Left PROCEDURE: IN UNLISTED PROCEDURE BREAST; COMMENT: done in [facility] HYSTERECTOMY 1999 PROCEDURE: HISTORICAL HYSTERECTOMY; COMMENT: has ovaries, removed due to pain and bleeding OTHER SURGICAL HISTORY 02/01/2020 PROCEDURE: IN EGD BALLOON DILATION ESOPHAGUS <30 MM DIAM; COMMENT: Dr. Wang -normal duodenum and stomach. Moderate stenosis at the GE junction dilated to 18 mm. Medical History Medical History Date Comments High blood pressure DX:High bloo d pressure Hypercholesterolemia DX:Hypercho lesterolemia Cervical disc herniation DX:Cerv ical disc herniation Breast calcification seen on mammogram DX:Breast calcification seen on mammogram; COMMENT: films in [place], fu 02/11 Colon polyp DX:Colon polyp; COMMENT: had colonoscopy, fu q 5 yrs Multiple thyroid nodules DX:Mult iple thyroid nodules; COMMENT: care in [place] Personal history of colonic polyps 07/04/2012 DX:Personal history of colonic polyps H/O mammogram 2015 DX:H/O mammogram ; COMMENT: done in [place]- pt advised to send copies Benign esophageal stricture 02/14/2020 DX:B enign esophageal stricture; COMMENT: Seen at upper endoscopy on 02/01/2020. Moderate stenosis at the GE junction was dilated to 18 mm. Gallstones 06/26/2020 DX:Gallstones; C OMMENT: Incidental finding on abdominal ultrasound. Abdominal discomfort DX:Abdomina l discomfort Functional dyspepsia DX:Function al dyspepsia Family History Medical History Relation Name Comments Hypertension Father age 102 Other: high blood pressure Mother Stroke Mother age 92 Hyperlipidemia Mother's side fside Diabetes Sister 1 3 sisters have diabetes Hypertension Sister 2 4 sisters with HTN Breast cancer Neg Hx Colon cancer Neg Hx Ovarian cancer Neg Hx Pancreatic cancer Neg Hx Prostate cancer Neg Hx Uterine cancer Neg Hx Relation Name Status Comments Father Mother Mother's side Sister 1 Sister 2 Social History Tobacco Use Types Packs/Day Years Used Date Smoking Tobacco: Never Smokeless Tobacco: Never Tobacco Cessation:Counseling Given: Not Answered Alcohol Use Standard Drinks/Week Comments No 0 (1 standard drink = 0.6 oz pur e alcohol) Interpersonal Safety Answer Date Record ed Physical Abuse Unrecognized value 06/14/2024 Verbal Abuse Unrecognized value 06/14/2024 Comments No Sex and Gender Information Value Date Recorded Sex Assigned at Female 03/23/2024 10:03 AM EST Legal Sex Female 4:57 AM EST Gender Identity Female 03/23/2024 10:03 AM EST Sexual Orientation Straight 02/27/2025 11 :42 AM EDT Obstetrics History Para Term AB IAB SAB Ectopic Multiple Livin g Live Births 1 1 Date Outcome GA Total Labor Labor/2nd/3rd Weight Sex Type Anes PTL Gabriela A1 A5 Name Clin Term Last Filed Vital Signs Vital Sign Reading Time Taken Comments Blood Pressure 139/86 06/14/2024 1:41 PM EST Pulse 71 06/14/2024 1:41 PM EST Temperature 36.7 C (98.1 F) 06/14/2024 1:21 PM EST Respiratory Rate 20 06/14/2024 1:41 PM EST Oxygen Saturation 97% 06/14/2024 1:41 PM EST Inhaled Oxygen Concentration - - Weight 90.7 kg (200 lb) 06/14/2024 12:29 PM EST Height 160 cm (5' 3 ) 06/14/2024 12:29 PM EST Body Mass Index 35.43 06/14/2024 12:29 PM EST Plan of Treatment Upcoming Encounters Date Type Department Care Team (Late st Contact Info) Description 03/26/2025 2:15 PM EST [facility]ointment [facility] [address] [phone] Health Maintenance Due Date Last Done Comments Zoster Vaccines (1 of 2) 2009 Pneumococcal Vaccine: 50+ Years (2 of 2 - PPSV23, PCV20, or PCV21) 02/25/2018 12/31/2017 Cholesterol Screening (Lipid Panel) 04/11/2022 Hepatitis C Screening 04/11/2022 Social Influencers of Health Screening 04/11/2022 Hypertension/CHF/CAD Annual BMP Blood Test 04/12/2022 Depression Screening 05/03/2024 COVID-19 Vaccine ( season) 2025 05/05/2022, 03/18/2021, 08/07/2020, Additional history exists Falls Risk Assessment 06/14/2025 06/14/2024 Breast Cancer Screening 03/23/2026 03/23/20 24, 03/17/2023, 10/22/2022, Additional history exists DTaP,Tdap,and Td Vaccines (2 - Td or Tdap) 05/05/2034 05/05/2024 Colorectal Cancer Screening: Colonoscopy 06/14/2034 06/14/2024 Osteoporosis Screening (Bone Density Screening) 03/13/2035 03/13/2025 RSV Immunization Adult Patients Completed 05/26/2024 Influenza Vaccine Completed 01/11/2025, , 03/19/2022, Additional history exists HIB Vaccines Aged Out No longer eligi ble based on patient's age to complete this topic HPV Vaccines Aged Out No longer eligi ble based on patient's age to complete this topic Hepatitis A Vaccines Aged Out No long er eligible based on patient's age to complete this topic Hepatitis B Vaccines Aged Out No long er eligible based on patient's age to complete this topic IPV Vaccines Aged Out No longer eligi ble based on patient's age to complete this topic MMR Vaccines Aged Out No longer eligi ble based on patient's age to complete this topic Meningococcal ACWY Vaccine Aged Out N o longer eligible based on patient's age to complete this topic Meningococcal B Vaccine Aged Out No l onger eligible based on patient's age to complete this topic RSV Immunization Patients Under 20 months Aged Out No longer eligible based on patient's age to complete this topic Varicella Vaccines Aged Out No longer eligible based on patient's age to complete this topic Procedures Procedure Name Priority Date/Time Associated Diagnosis Comments BD BONE DENSITY DXA AXIAL SKELETON Routine 03/13/2025 9:46 AM EST Asymptomatic menopause COLONOSCOPY Routine 06/14/2024 1:20 PM EST Colon cancer screening MG MAMMO DIGITAL SCREENING W QUENTIN BILAT Routine 03/23/2024 2:49 PM EST Encounter for screening mammogram for breast cancer from Last 3 Months or Most Recently Relevant to Health Maintenance Results * BD Bone Density DXA Axial Skeleton (03/13/2025 9:46 AM EST) Anatomical Region Laterality Modality Wrist, Hip, L-spine Bone Densito metry 03/13/2025 10:4 8 AM EST Impressions 03/13/2025 10:49 AM EST 1. There is no evidence of osteoporosis or osteopenia. 2. FRAX analysis yields a 10-year probability of major osteoporotic fracture of 6.1% and a 10-year probability of hip fracture of 0.4%. Code 90510 -------- FINAL REPORT -------- Dictated By: Paco Taylor Dictated Date: 03/13/2025 10:48 ET Assigned Physician: Paco Taylor Reviewed and Electronically Signed By: Paco Taylor Signed Date: 03/13/2025 10:49 ET Workstation ID: [id number] Transcribed By: Self Edit Transcribed Date: 03/13/2025 10:48 ET Narrative 03/13/2025 10:49 AM EST HISTORY: The patient is a 64-year-old postmenopausal female with clinical concern for metabolic bone disease. FINDINGS: Dual energy x-ray absorptiometry of the lumbar spine and femurs is performed. The mean bone mineral density at L1-L4 is 1.087 gm/cm2 which is 92% of that of young normals and 96% of that of age matched controls. This yields a T-score of -0.8 and a Z-score of -0.3 and there is therefore no evidence of osteoporosis or osteopenia here. The mean bone mineral density of the femurs bilaterally is 1.066 gm/cm2 which is 106% of that of young normals and 111% of that of age matched controls. This yields a T-score of 0.5 and a Z-score of 0.9 and there is therefore no evidence of osteoporosis or osteopenia here. Procedure Note Paco Taylor MD - 03/13/2025 HISTORY: The patient is a 64-year-old postmenopausal female with clinicalconcern for metabolic bone disease. FINDINGS: Dual energy x-ray absorptiometry of the lumbar spine and femursis performed. The mean bone mineral density at L1-L4 is 1.087 gm/cm2 whichis 92% of that of young normals and 96% of that of age matched controls.This yields a T-score of -0.8 and a Z-score of -0.3 and there is thereforeno evidence of osteoporosis or osteopenia here. The mean bone mineral density of the femurs bilaterally is 1.066 gm/xh9pauzi is 106% of that of young normals and 111% of that of age matchedcontrols. This yields a T-score of 0.5 and a Z-score of 0.9 and there istherefore no evidence of osteoporosis or osteopenia here. IMPRESSION: 1. There is no evidence of osteoporosis or osteopenia. 2. FRAX analysis yields a 10-year probability of major osteoporoticfracture of 6.1% and a 10-year probability of hip fracture of 0.4%. Code 85858 -------- FINAL REPORT -------- Dictated By: Paco Taylor Dictated Date: 03/13/2025 10:48 ET Assigned Physician: Paco Taylor Reviewed and Electronically Signed By: Paco Taylor Signed Date: 03/13/2025 10:49 ET Workstation ID: [id number] Transcribed By: Self Edit Transcribed Date: 03/13/2025 10:48 ET Debbi TURK IMG DXA PROCEDURES Final Resul t * COLONOSCOPY Anesthesia - MAC; [facility] ENDOSCOPY (06/14/2024 1:20 PM EST) Anatomical Region Laterality Modality Other 06/14/2024 1:03 PM EST Impressions 06/14/2024 1:21 PM EST - One 5 mm polyp in the mid transverse colon, removed with a cold snare. Resected and retrieved. - One 5 mm polyp at 50 cm proximal to the anus, removed with a cold snare. Resected and retrieved. - Diverticulosis in the sigmoid colon. - Non-bleeding internal hemorrhoids. - The examination was otherwise normal on direct and retroflexion views. Recommendation: - Discharge patient to home. - High fiber diet. - Continue present medications. - Await pathology results. - Repeat colonoscopy for surveillance based on pathology results. - Return to GI office PRN. Narrative 06/14/2024 1:21 PM EST [facility] GI Patient Name: Nicki Ag Procedure Date: 06/14/2024 1:03 PM Date of : 1960 Age: 63 Room: ROOM 14 Gender: Female Note Status: Finalized Attending MD: Myke Walton MD, Procedure Date No Time: 06/14/2024 Procedure: Colonoscopy Indications: Screening for colorectal malignant neoplasm Providers: Myke Walton MD Referring MD: Myke Walton MD Medicines: Monitored Anesthesia Care Complications: No immediate complications. Estimated Blood Loss: Estimated blood loss: none. Procedure: Pre-Anesthesia Assessment: - ASA Grade Assessment: II - A patient with mild systemic disease. - After reviewing the risks and benefits, the patient was deemed in satisfactory condition to undergo the procedure. After I obtained informed consent, the scope was passed under direct vision. Throughout the procedure, the patient's blood pressure, pulse, and oxygen saturations were monitored continuously.The Colonoscope was introduced through the anus and advanced to the cecum, identified by appendiceal orifice and ileocecal valve. The colonoscopy was performed without difficulty. The patient tolerated the procedure well. The quality of the bowel preparation was good. Findings: A 5 mm polyp was found in the mid transverse colon. The polyp was sessile. The polyp was removed with a cold snare. Resection and retrieval were complete. Estimated blood loss was minimal. A 5 mm polyp was found at 50 cm proximal to the anus. The polyp was sessile. The polyp was removed with a cold snare. Resection and retrieval were complete. Estimated blood loss was minimal. Scattered small and large-mouthed diverticula were found in the sigmoid colon. Non-bleeding internal hemorrhoids were found during retroflexion. The hemorrhoids were small. The exam was otherwise without abnormality on direct and retroflexion views. Procedure Code(s): --- Professional --- 77566, Colonoscopy, flexible; with removal of tumor(s), polyp(s), or other lesion(s) by snare technique Diagnosis Code(s): --- Professional --- Z12.11, Encounter for screening for malignant neoplasm of colon D12.3, Benign neoplasm of transverse colon (hepatic flexure or splenic flexure) CPT copyright 2020 [employer] [place] [employer]. All rights reserved. The codes documented in this report are preliminary and upon bottle gauger review may be revised to meet current compliance requirements. Myke Walton MD 06/14/2024 1:21:01 PM This report has been signed electronically.Myke Walton MD Number of Addenda: 0 Note Initiated On: 06/14/2024 1:03 PM Scope In: Scope Out: Endoscopy Department at [facility] - [address] [place] [phone] Procedure Note Myke Walton MD - 06/14/2024 [facility] GI Patient Name: Nicki Ag Procedure Date: 06/14/2024 1:03 PM Date of : 1960 Age: 63 Room: ROOM 14 Gender: Female Note Status: Finalized Attending MD: Myke Walton MD, Procedure Date No Time: 06/14/2024 Procedure: Colonoscopy Indications: Screening for colorectal malignant neoplasm Providers: Myke Walton MD Referring MD: Myke Walton MD Medicines: Monitored Anesthesia Care Complications: No immediate complications. Estimated Blood Loss: Estimated blood loss: none. Procedure: Pre-Anesthesia Assessment: - ASA Grade Assessment: II - A patient with mild systemic disease. - After reviewing the risks and benefits, thepatient was deemed in satisfactory condition to undergo the procedure. After I obtained informed consent, the scope was passed under direct vision. Throughout theprocedure, the patient's blood pressure, pulse, and oxygen saturations were monitored continuously.The Colonoscope was introduced through the anus and advanced to the cecum, identified by appendiceal orifice and ileocecal valve. The colonoscopy was performed without difficulty. The patient tolerated the procedure well. The quality of the bowel preparation was good. Findings: A 5 mm polyp was found in the mid transverse colon. The polyp was sessile. The polyp was removed with a cold snare. Resection and retrieval were complete. Estimated blood loss was minimal. A 5 mm polyp was found at 50 cm proximal to theanus. The polyp was sessile. The polyp was removed with a cold snare. Resection and retrieval were complete. Estimated blood loss was minimal. Scattered small and large-mouthed diverticula were found in the sigmoid colon. Non-bleeding internal hemorrhoids were found during retroflexion. The hemorrhoids were small. The exam was otherwise without abnormality ondirect and retroflexion views. Procedure Code(s): --- Professional --- 52871, Colonoscopy, flexible; with removal of tumor(s), polyp(s), or other lesion(s) by snare technique Diagnosis Code(s): --- Professional --- Z12.11, Encounter for screening for malignantneoplasm of colon D12.3, Benign neoplasm of transverse colon (hepatic flexure or splenic flexure) CPT copyright 2020 [employer] [place] [employer]. All rights reserved. The codes documented in this report are preliminary and upon bottle gauger reviewmay be revised to meet current compliance requirements. Myke Walton MD 06/14/2024 1:21:01 PM This report has been signed electronically.Myke Walton MD Number of Addenda: 0 Note Initiated On: 06/14/2024 1:03 PM Scope In: Scope Out: Endoscopy Department at [facility] - [address] [place] [phone] IMPRESSION: - One 5 mm polyp in the mid transverse colon, removed with a cold snare. Resected and retrieved. - One 5 mm polyp at 50 cm proximal to the anus, removed with a cold snare. Resected andretrieved. - Diverticulosis in the sigmoid colon. - Non-bleeding internal hemorrhoids. - The examination was otherwise normal on directand retroflexion views. Recommendation: - Discharge patient to home. - High fiber diet. - Continue present medications. - Await pathology results. - Repeat colonoscopy for surveillance based on pathology results. - Return to GI office PRN. us Myke Walton MD GI~PROCEDURE ORDERABLES Final Result * MG Mammo Digital Screening w Quentin bilat (03/23/2024 2:49 PM EST) Anatomical Region Laterality Modality Breast Bilateral Mammography 03/24/2024 8:29 AM EST Impressions 03/24/2024 8:35 AM EST Stable mammographic appearance of the breasts. No evidence of malignancy is seen. A negative mammogram in the presence of a clinically suspicious palpable abnormality does not preclude the possibility of malignancy or alter the indications for biopsy. BI-RADS: Category 1: Negative RECOMMENDATION(S): 1: Routine screening mammogram BILATERAL in 1 year. Mammo Location: [facility], [address] [place] [address], [id number], . -------- FINAL REPORT -------- Dictated By: Es Kessler Dictated Date: 03/24/2024 08:29 ET Assigned Physician: Es Kessler Reviewed and Electronically Signed By: Es Kessler Signed Date: 03/24/2024 08:35 ET Workstation ID: [id number] Transcribed By: Self Edit Transcribed Date: 03/24/2024 08:29 ET Narrative 03/24/2024 8:35 AM EST EXAM: MG MAMMO DIGITAL SCREENING W QUENTIN BILAT EXAM DATE: 03/23/2024 2:19 PM HISTORY: Breast cancer screen, avg risk, asymptomatic (Age => 40y) COMPARISON: Mammograms dating back to 03/04/2020 with most recent of 03/17/2023. TECHNIQUE: Bilateral digital breast tomosynthesis was performed in the CC and MLO projections. Computer aided detection with [employer] AI 3D 3.1 was employed. TISSUE DENSITY: b. There are scattered areas of fibroglandular density. FINDINGS: No suspicious masses, grouped microcalcifications, or areas of architectural distortion are seen. The skin and vascularity are unremarkable. Procedure Note Es Kessler MD - 03/24/2024 EXAM: MAMMO DIGITAL SCREENING W QUENTIN BILAT EXAM DATE: 03/23/2024 2:19 PM HISTORY: Breast cancer screen, avg risk, asymptomatic (Age => 40y) COMPARISON: Mammograms dating back to 03/04/2020 with most recent of03/17/2023. TECHNIQUE: Bilateral digital breast tomosynthesis was performed in the CCand MLO projections. Computer aided detection with Stream[employer] Sept[employer] AI 3D 3.1was employed. TISSUE DENSITY: b. There are scattered areas of fibroglandular density. FINDINGS: No suspicious masses, grouped microcalcifications, or areas ofarchitectural distortion are seen. The skin and vascularity areunremarkable. IMPRESSION: Stable mammographic appearance of the breasts. No evidence of malignancyis seen. A negative mammogram in the presence of a clinically suspicious palpableabnormality does not preclude the possibility of malignancy or alter theindications for biopsy. BI-RADS: Category 1: Negative RECOMMENDATION(S): 1: Routine screening mammogram BILATERAL in 1 year. Mammo Location: [facility], [address] [place] [address], [id number], . -------- FINAL REPORT -------- Dictated By: Es Kessler Dictated Date: 03/24/2024 08:29 ET Assigned Physician: Es Kessler Reviewed and Electronically Signed By: Es Kessler Signed Date: 03/24/2024 08:35 ET Workstation ID: [id number] Transcribed By: Self Edit Transcribed Date: 03/24/2024 08:29 ET Tuyet Barajas MD IMG BI PROCEDURES Final Result from Last 3 Months or Most Recently Relevant to Health Maintenance Insurance [id number] Care Teams Cafeteria Operator Relationship Specialty Start Date End Date Mady Corrales FNP [address] [place] [phone] PCP - General Family Medicine 02/27/25
--- OUTSIDE RECORDS SUMMARY | 2025-03-22 19:42 | XMS_ITS | Clinical Summary ---
Author Organization [facility] Address [address] [address] Phone Care Team Providers Care Sales Assistant Displays Name Role Phone Pcp, Unknown Primary Care Provider Unavailabl e Allergies No known active allergies Medications candesartan (ATACAND) 16 MG tablet Take 1 tablet by mouth 2 (two) times a day. 10/05/2023 Active cetirizine (ZYRTEC) 10 MG tablet Take 1 tablet by mouth every morning. 10/25/2023 Active diphenhydrAMINE (BENADRYL) 25 mg capsule Take 25 mg by mouth every 4 (four) hours as needed. 10/11/2023 Active TRELEGY ELLIPTA 200-62.5-25 mcg inhaler Inhale 1 puff into the lungs daily. 10/13/2023 Active LORazepam (ATIVAN) 0.5 MG tablet Take 1 tablet by mouth once as needed for anxiety. 12/09/2023 Active montelukast (SINGULAIR) 10 mg tablet Take 10 mg by mouth. 09/16/2023 Active omeprazole (PRILOSEC) 40 MG capsule Take 1 capsule by mouth 2 (two) times a day. 11/30/2023 Active roflumilast (DALIRESP) 250 mcg Tab Take 1 tablet by mouth every morning. 12/06/2023 Active rosuvastatin (CRESTOR) 10 MG tablet Take 10 mg by mouth daily. 12/11/2023 Active escitalopram oxalate (LEXAPRO) 5 MG tablet Take 5 mg by mouth daily. Active dupilumab (DUPIXENT SYRINGE SUBQ) Inject under the skin. 2x weekly Active Encounters Date Type Department Care Team Description 02/22/2025 Transcribe Orders [facility] [address] [place] [id number] Mady Corrales NP 01/12/2025 Ancillary Orders [facility],Outside Imaging [address] [place] [address] UnknownBlu MD 01/11/2025 Transcribe Orders Virtual Department [address] [place] [address] Mady Corrales NP Asymptomatic menopausal state (Primary Dx) from Last 3 Months Social History Tobacco Use Types Packs/Day Years Used Date Smoking Tobacco: Never Smokeless Tobacco: Never Tobacco Cessation:Counseling Given: Not Answered Alcohol Use Standard Drinks/Week Comments Never 0 (1 standard drink = 0.6 oz pur e alcohol) Education Answer Date Recorded Are you interested in more education? Not on eduardo e 10/14/2023 Are you concerned about learning? Not on file 10/14/2023 No 10/14/2023 No 10/14/2023 Digital Access Answer Date Recorded No 10/14/2023 No 10/14/2023 Reliable internet access at home? Not on file 10/14/2023 Device with a working camera? Not on file Intimate Partner Violence Answer Date R ecorded Denied Basic Needs Not on file 12/14/2023 In the past 12 months have y ou been in a relationship with a person who hurts, threatens, or tries to control you? No 12/14/2023 Worried food would run out Not on file 12/13 In the past 12 months have y ou been in a relationship with a person who hurts, threatens, or tries to control you? No 12/14/2023 Comments No Sex and Gender Information Value Date Recorded Sex Assigned at Not on file Legal Sex Female 11:49 AM EDT Gender Identity Not on file Sexual Orientation Not on file Last Filed Vital Signs Vital Sign Reading Time Taken Comments Blood Pressure - - Pulse - - Temperature - - Respiratory Rate - - Oxygen Saturation - - Inhaled Oxygen Concentration - - Weight 90.7 kg (200 lb) 12/14/2023 3:05 PM EDT Height 160 cm (5' 3 ) 12/14/2023 3:05 PM EDT Body Mass Index 35.43 12/14/2023 3:05 PM EDT Plan of Treatment Health Maintenance Due Date Last Done Comments Adult Td,Tdap Booster 1959 CREATININE LEVEL 1959 LIPID PANEL 1959 POTASSIUM LEVEL 1959 DEPRESSION SCREENING 1971 HEPATITIS C SCREENING 1977 HIV ONE-TIME SCREENING (18-65 YEARS) 1977 SCREENING FOR DIABETES 1994 COLOGUARD 2004 COLONOSCOPY 2004 COLORECTAL CANCER SCREENING 2004 FIT TEST 2004 FOBT 2004 SIGMOIDOSCOPY 2004 VIRTUAL COLONOSCOPY 2004 PNEUMOCOCCAL VACCINES (50+ years) (1 of 1 - PCV) 2009 ZOSTER VACCINES (1 of 2) 2009 OSTEOPOROSIS SCREENING INITIAL (ONE-TIME) 2024 INFLUENZA VACCINE (#1) 2024 03/19/2022, 2021 COVID-19 VACCINE (2024- season) 2025 05/05/2022, 03/18/2021, 08/07/2020, Additional history exists MAMMOGRAM 03/23/2026 03/23/2024, 03/23/2024 RSV VACCINE (1 - 1-dose 75+ series) 2034 SMOKING STATUS SCREENING (Once After 26 Yrs) Completed 12/14/2023 HEPATITIS A VACCINES Aged Out No long er eligible based on patient's age to complete this topic HIB VACCINES Aged Out No longer eligi ble based on patient's age to complete this topic IPV VACCINES Aged Out No longer eligi ble based on patient's age to complete this topic MENINGOCOCCAL VACCINES (ACWY) Aged Out No longer eligible based on patient's age to complete this topic MENINGOCOCCAL VACCINES (B) Aged Out N o longer eligible based on patient's age to complete this topic Medical Devices Not on file Insurance [facility] [address] [address] [place] [address] HEALTH Care Teams Sales Assistant Displays Relationship Specialty Start Date End Date Pcp, Unknown PCP - General 10/14/23 Additional Source Comments The information contained in this document represents components of the legal health record. It is not the complete legal health record.[facility]
--- OUTSIDE RECORDS SUMMARY | 2025-03-22 19:42 | XMS_ITS | Encounter Summary ---
Author Organization [facility] Address [address] [facility] [address] [place] [phone] Phone Care Team Providers Care It Analyst Name Role Phone Pcp, Unknown Primary Care Provider Unavailabl e Encounter Details Date Type Department Care Team (Late st Contact Info) Description 12/16/2023 Procedure Pass [facility] Endoscopy Admitting Dept Virtual Department [address] [place] [address] Social History Tobacco Use Types Packs/Day Years Used Date Smoking Tobacco: Never Smokeless Tobacco: Never Alcohol Use Standard Drinks/Week Comments Never 0 [...] on file Sexual Orientation Not on file documented as of this encounter Plan of Treatment Not on file documented as of this encounter Visit Diagnoses Not on filedocumented in this encounter Care Teams It Analyst Relationship Specialty Start Date End Date Pcp, Unknown PCP - General 10/14/23 documented as of this encounter Additional Source Comments The information contained in this document represents components of the legal health record. It is not the complete legal health record.[facility]
--- OUTSIDE RECORDS SUMMARY | 2025-03-22 19:42 | XMS_ITS | Encounter Summary ---
Author Organization [facility] Address [address] [facility] [address] [place] [phone] Phone Care Team Providers Care Brazing Furnace Operator Name Role Phone Pcp, Unknown Primary Care Provider Unavailabl e Encounter Details Date Type Department Care Team (Late st Contact Info) Description 01/11/2025 Transcribe Orders Virtual Department [address] [place] [address] Mady Corrales NP [address] [place], [place] [phone] Asymptomatic menopausal state (Primary Dx) Social History Tobacco Use Types Packs/Day Years [...] as of this encounter Plan of Treatment Scheduled Orders Name Type Priority Associated Diagnoses Orde r Schedule DXA Screening Imaging Routine Asymptomatic menopausal state Expected: 02/10/2025, Expires: 01/11/2026 documented as of this encounter Visit Diagnoses Diagnosis Asymptomatic menopausal state- Primary documented in this encounter Care Teams Brazing Furnace Operator Relationship Specialty Start Date End Date Pcp, Unknown PCP - General 10/14/23 documented as of this encounter Additional Source Comments The information contained in this document represents components of the legal health record. It is not the complete legal health record.[facility]
== END 2025-03-22 14:50 | disposition home or self-care (01) ==
LOC: HO.HPS 14:16
PROVIDERS: PCP Physician Assistant; Visit Provider Hospitalist
DX: J45.50 Severe persistent asthma, uncomplicated (principal); J40 Bronchitis, not specified as acute or chronic; J41.8 Mixed simple and mucopurulent chronic bronchitis; J30.9 Allergic rhinitis, unspecified; G47.33 Obstructive sleep apnea (adult) (pediatric); Z99.89 Dependence on other enabling machines and devices
CPT/HCPCS: 99214; G2211